=== PATIENT | female | born 1960 | race Caucasian/White ===

== ENCOUNTER → 2016-09-21 | Outpatient (CLI) | payer OTHER ==
[~2016-09-21] MED LIST: ADVIN50/60 INH; ALBUAER2 INH; AMIT25TA19 PO; ATOR-22 PO; BUPR-79 PO; CHN/1 PO; CLON1TAB3 PO; DIVA500T3 PO; GLC/500 PO; ISOS30TA51 PO; LEVO75TA5 PO; RANI300T2 PO; SERT1TAB68 PO
[2016-09-21 10:20] LABS: BASO % 0.3 %; BASO ABS # 0.02 K/uL (0-0.2); COMPLETE YES; EOS % 3.1 %; HEMATOCRIT 39.2 % (37-47); IG% 0.1 %; LYMPH % 39.1 %; LYMPH ABS # 2.62 K/uL (1.2-3.4); MEAN CELL VOLUME 88.9 fL (80-100); MEAN CORPUSCULAR HEMOGLOBIN 30.4 pg (25-34); MEAN CORPUSCULAR HGB CONC 34.2 g/dl (32-36); MEAN PLATELET VOLUME 9.8 fL (7.4-10.4); MONO % 7.2 %; NEUT % 50.2 %; PLATELET COUNT 175 K/uL (130-400); RED BLOOD COUNT 4.41 M/uL (4.2-5.4)
[2016-09-21 10:42] LABS: ESTIMATED AVERAGE GLUCOSE 105 mg/dl; HA1C FLAG Normal (Normal)
[2016-09-21 11:21] LABS: BLOOD UREA NITROGEN 13 mg/dl (7-18); BUN/CREATININE RATIO 16.7 (10-20); CALCIUM 9.1 mg/dl (8.5-10.1); CARBON DIOXIDE 30 mmol/L (21-32); CHLORIDE 104 mmol/L (98-107); CREATININE 0.76 mg/dl (0.60-1.20); GLUCOSE 89 mg/dl (70-99); POTASSIUM 4.4 mmol/L (3.5-5.1); SODIUM 142 mmol/L (136-145)
[2016-09-21 11:34] LABS: AMYLASE 36 U/L (25-115); CHOLESTEROL 178 mg/dl (0-200); CHOLESTEROL/HDL RATIO 4.2; HDL CHOLESTEROL 42 mg/dl; TRIGLYCERIDES 292 mg/dl (0-150); VERY LOW DENSITY LIPOPROT CALC 58 mg/dl
--- NOTE | 2016-09-29 14:02 | CODING QUERY MEDICAL NECESSITY ---
SUPPORTING DIAGNOSIS NEEDED A supporting diagnosis is required for the test/procedure performed on this patient in order for us to be reimbursed by the patient's insurance. Please provide a supporting diagnosis for the following test/procedure listed below next to the test name along with your signature. *If there is no additional diagnosis for this patient that would support the following test/procedure please document that below next to the test/procedure. Test(s)/Procedure(s) that require a supporting diagnosis: * VITAMIN B-12 LEVEL DIAGNOSIS: * GLYCATED HEMOGLOBIN DIAGNOSIS: * DOS: 09/21/16 Provider Signature: Date: Thank you Amy Douglas Health Information Management Once completed, please kindly fax back to [phone] For questions please call [phone]
== END | disposition home or self-care (01) ==
LOC: C.LAB 09:34
DX: I10 Essential (primary) hypertension (principal); E78.5 Hyperlipidemia, unspecified; E03.9 Hypothyroidism, unspecified; G62.9 Polyneuropathy, unspecified; E88.81 Metabolic syndrome and other insulin resistance

== ENCOUNTER → 2017-06-20 | Outpatient (CLI) | payer OTHER ==
[~2017-06-20] MED LIST changes: -ISOS30TA51 PO; +ISR/30 PO
[2017-06-20 10:36] LABS: BASO % 0.3 %; BASO ABS # 0.02 K/uL (0-0.2); COMPLETE YES; EOS % 3.1 %; HEMATOCRIT 37.8 % (37-47); IG% 0.3 %; LYMPH ABS # 2.39 K/uL (1.2-3.4); MEAN CELL VOLUME 93.8 fL (80-100); MEAN CORPUSCULAR HEMOGLOBIN 30.8 pg (25-34); MEAN CORPUSCULAR HGB CONC 32.8 g/dl (32-36); MONO % 6.6 %; NEUT % 57.7 %; PLATELET COUNT 192 K/uL (130-400); RED BLOOD COUNT 4.03 M/uL (4.2-5.4); WHITE BLOOD COUNT 7.46 K/uL (4.8-10.8)
[2017-06-20 11:03] LABS: ESTIMATED AVERAGE GLUCOSE 114 mg/dl; HA1C FLAG Normal (Normal)
[2017-06-20 11:08] LABS: ALT/SGPT 29 U/L (12-78); AST/SGOT 15 U/L (15-37); BLOOD UREA NITROGEN 7 mg/dl (7-18); BUN/CREATININE RATIO 9.9 (10-20); CALCIUM 8.9 mg/dl (8.5-10.1); CARBON DIOXIDE 27 mmol/L (21-32); CHLORIDE 103 mmol/L (98-107); CREATININE 0.72 mg/dl (0.60-1.20); GLUCOSE 93 mg/dl (70-99); POTASSIUM 4.1 mmol/L (3.5-5.1); SODIUM 138 mmol/L (136-145)
[2017-06-20 11:11] LABS: CHOLESTEROL 170 mg/dl (0-200); CHOLESTEROL/HDL RATIO 4.6; HDL CHOLESTEROL 37 mg/dl; LDL CHOLESTEROL CALCULATED 65 mg/dl; TRIGLYCERIDES 339 mg/dl (0-150); VERY LOW DENSITY LIPOPROT CALC 68 mg/dl
== END | disposition home or self-care (01) ==
LOC: C.LAB 08:54
DX: I25.10 Atherosclerotic heart disease of native coronary artery without angina pectoris (principal); I10 Essential (primary) hypertension; G62.9 Polyneuropathy, unspecified; E78.5 Hyperlipidemia, unspecified

== ENCOUNTER 2017-06-28 19:09 | Observation (INO) | payer OTHER ==
[~2017-06-28] VITALS: Ht 172.7 cm; Wt 92.7 kg
--- NOTE | 2017-06-28 20:04 | EMERGENCY ROOM VISIT NOTE ---
History Report prepared by Chris: Brady Weber Under the Supervision of: Daphne HernándezO. First contact with patient: 19:27 Chief Complaint: SHOULDER PAIN Stated Complaint: PAIN IN R SHOULDER AND CHEST History of Present Illness The patient is a 57 year old female who presents to the Emergency Room with complaints of constant right shoulder pain beginning 5 hours ago. The patient states her pain radiates to her back and pleuritic chest. The patient reports she was taking it easy today because she tweaked her back yesterday playing with her grandchild. She notes her pain is an 8/10 when moving, and a 4/10 when sitting. The patient states she is experiencing shortness of breath, chronic cough, and chronic diarrhea. She reports she has a history of pleurisy, and this feels very similar to her previous episodes. The patient notes lying down and deep breathing makes it worse. She states she has a history of diabetes mellitus, neuropathy, depression, insomnia, and smoking. The patient denies nausea, vomiting, blood in her stool, and a history of blood clots. Source of History: patient Onset: 5 hours ago Position: shoulder (right) Modifying Factors (Worsening): breathing (deep), other (lying down) Associated Symptoms: + cough (chronic), + chest pain (pleuritic), + SOB, + back pain, + diarrhea (chronic), No nausea, No vomiting Note: Denies: blood in stool Review of Systems See HPI for pertinent positives & negatives. A total of 10 systems reviewed and were otherwise negative. Past Medical & Surgical Medical Problems: (1) Appendectomy (2) Asthma (3) Bronchitis (4) Cardiac catheterization (5) Cholecystectomy (6) Chronic obstructive lung disease (7) Diabetes mellitus (8) Heart disease (9) Hysterectomy (10) Pleurisy Family History Diabetes mellitus FHx: cancer Gallbladder disease Heart disease Hypertension Kidney disease Kidney stones Seizures Social History Smoking Status: Current Every Day Smoker Alcohol Use: none Marital Status: Housing Status: lives with family Occupation Status: employed Current/Historical Medications Scheduled Amitriptyline Hcl (Amitriptyline), 50 MG PO HS Atorvastatin (Lipitor), 20 MG PO QAM Clonazepam (Klonopin), 0.5 MG PO HS Clopidogrel Bisulfate (Clopidogrel), 75 MG PO QAM Diltiazem Hcl Coated Beads (Diltiazem Hcl Er), 120 MG PO DAILY Divalproex Sodium (Depakote Er), 500 MG PO HS Fluticasone Prop/Salmeterol (Advair Diskus 500/50 60 Dose), 1 PUFFS INH BID Isosorbide Dinitrate (Isordil), 15 MG PO QAM Levothyroxine Sodium (Levothyroxine Sodium), 1 TAB PO QAM Metformin Hcl (Glucophage), 500 MG PO BID Oxycodone HCl (Oxycodone HCl), 1 TAB PO Q6H Ranitidine (Zantac), 300 MG PO BID Sertraline Hcl (Zoloft), 100 MG PO BID Scheduled PRN Albuterol (Ventolin Hfa), 1-2 PUFFS INH BID PRN for Shortness of Breath Allergies Coded Allergies: Aspirin (Verified Allergy, Unknown, HIVES, SOB, 06/28/17) Sulfa Drugs (Verified Allergy, Unknown, HIVES, SOB, 06/28/17) Physical Exam Vital Signs Date Time Temp Pulse Resp B/P (MAP) Pulse Ox O2 Delivery O2 Flow Rate FiO2 06/28/17 22:38 86 18 132/74 92 Room Air 06/28/17 21:35 83 18 114/71 94 Room Air 06/28/17 20:46 93 Room Air 06/28/17 20:42 89 06/28/17 20:09 93 20 123/75 91 Room Air 06/28/17 19:22 36.7 98 18 127/81 93 Room Air Physical Exam GENERAL: alert, well appearing, well nourished, no distress, non-toxic EYE EXAM: normal conjunctiva, PERRL and EOM's grossly intact OROPHARYNX: no exudate, no erythema, lips, buccal mucosa, and tongue normal and mucous membranes are moist NECK: supple, no nuchal rigidity, no adenopathy, non-tender LUNGS: Clear to auscultation. Normal chest wall mechanics HEART: no murmurs, S1 normal and S2 normal no reproducible pain on palpation of the right sided chest wall. ABDOMEN: abdomen soft, non-tender, normo-active bowel sounds, no masses, no rebound or guarding. BACK: Back is symmetrical on inspection and there is no deformity, no midline tenderness, no CVA tenderness. SKIN: no rashes and no bruising UPPER EXTREMITIES: Left upper extremity is grossly normal. Decreased ROM to the right shoulder. No bony tenderness, no joint effusion, no deformity. LOWER EXTREMITIES: No pitting edema. NEURO EXAM: Normal sensorium, cranial nerves II-XII grossly intact, normal speech, no gross weakness of arms, no gross weakness of legs. Medical Decision & Procedures ER Provider Diagnostic Interpretation: Radiology results have been interpreted by the radiologist and reviewed by me. R SHOULDER MIN 2 VIEWS ROUTINE CLINICAL HISTORY: right shoulder pain pain COMPARISON: None. DISCUSSION: The bones and joint spaces appear intact. There is no evidence of fracture, dislocation or bony disease. There is no evidence for soft tissue swelling. IMPRESSION: Negative study. The above report was generated using voice recognition software. It may contain grammatical, syntax or spelling errors. Electronically signed by: Geronimo Pinto M.D. 06/28/2017 8:46 PM Dictated Date/Time: 06/28/2017 8:46 PM CHEST ONE VIEW PORTABLE CLINICAL HISTORY: chest/right shoulder pain pain COMPARISON STUDY: 08/19/2015 FINDINGS: The bones soft tissues and hemidiaphragms are normal. The cardiomediastinal silhouette is normal. The lungs are clear. The pulmonary vasculature is normal. IMPRESSION: Negative chest. The above report was generated using voice recognition software. It may contain grammatical, syntax or spelling errors. Electronically signed by: Geronimo Pinto M.D. 06/28/2017 8:52 PM Dictated Date/Time: 06/28/2017 8:52 PM Laboratory Results 06/28/17 20:17 Red Blood Count 4.13, Mean Corpuscular Volume 91.5, Mean Corpuscular Hemoglobin 31.7, Mean Corpuscular Hemoglobin Concent 34.7, Mean Platelet Volume 9.7, Neutrophils (%) (Auto) 44.9, Lymphocytes (%) (Auto) 44.4, Monocytes (%) (Auto) 6.1, Eosinophils (%) (Auto) 4.0, Basophils (%) (Auto) 0.3, Neutrophils # (Auto) 3.27, Lymphocytes # (Auto) 3.22, Monocytes # (Auto) 0.44, Eosinophils # (Auto) 0.29, Basophils # (Auto) 0.02 Test 06/28/17 20:17 White Blood Count 7.26 K/uL (4.8-10.8) Red Blood Count 4.13 M/uL (4.2-5.4) Hemoglobin 13.1 g/dL (12.0-16.0) Hematocrit 37.8 % (37-47) Mean Corpuscular Volume 91.5 fL (80-100) Mean Corpuscular Hemoglobin 31.7 pg (25-34) Mean Corpuscular Hemoglobin Concent 34.7 g/dl (32-36) Platelet Count 189 K/uL (130-400) Mean Platelet Volume 9.7 fL (7.4-10.4) Neutrophils (%) (Auto) 44.9 % Lymphocytes (%) (Auto) 44.4 % Monocytes (%) (Auto) 6.1 % Eosinophils (%) (Auto) 4.0 % Basophils (%) (Auto) 0.3 % Neutrophils # (Auto) 3.27 K/uL (1.4-6.5) Lymphocytes # (Auto) 3.22 K/uL (1.2-3.4) Monocytes # (Auto) 0.44 K/uL (0.11-0.59) Eosinophils # (Auto) 0.29 K/uL (0-0.5) Basophils # (Auto) 0.02 K/uL (0-0.2) RDW Standard Deviation 46.1 fL (36.4-46.3) RDW Coefficient of Variation 14.0 % (11.5-14.5) Immature Granulocyte % (Auto) 0.3 % Immature Granulocyte # (Auto) 0.02 K/uL (0.00-0.02) Prothrombin Time 10.0 SECONDS (9.0-12.0) Prothromb Time International Ratio 1.0 (0.9-1.1) Activated Partial Thromboplast Time 27.8 SECONDS (21.0-31.0) Partial Thromboplastin Ratio 1.1 D-Dimer 410 ug/L FEU (0-500) Total Bilirubin 0.3 mg/dl (0.2-1) Aspartate Amino Transf (AST/SGOT) 15 U/L (15-37) Alanine Aminotransferase (ALT/SGPT) 28 U/L (12-78) Alkaline Phosphatase 88 U/L (45-117) Total Protein 7.6 gm/dl (6.4-8.2) Albumin 3.7 gm/dl (3.4-5.0) Globulin 3.9 gm/dl (2.5-4.0) Albumin/Globulin Ratio 1.0 (0.9-2) Laboratory results per my review. Medications Administered Medications (Trade) Dose Ordered Sig/Esme Route Start Time Stop Time Status Last Admin Dose Admin Ketorolac Tromethamine (Toradol Inj) 15 mg NOW STAT IV 06/28/17 20:08 06/28/17 20:09 DC 06/28/17 20:28 15 MG Nitroglycerin (Nitroglycerin 2% Oint) 1 inch NOW ONCE EXT 06/28/17 22:30 06/28/17 22:31 DC 06/28/17 22:41 1 INCH Morphine Sulfate (MoRPHine SULFATE INJ) 2 mg Q30M PRN IV 06/28/17 23:00 06/29/17 17:24 DC 06/29/17 13:50 2 MG ECG Indication: chest pain, back/shoulder pain Rate (beats per minute): 85 Rhythm: normal sinus Findings: T-wave inversion (in AVL), other (no other acute ischemic changes) Comparison ECG Date: 11/04/14 Change: no significant change Change: Second EKG in the same visit: normal sinus rhythm, rate of 80, ST-depression in V5 and V6 now present. ED Course 1928: The patient was evaluated in room C05. A complete history and physical exam was performed by the medical student under my supervision. 2007: Ordered Ketorolac Tromethamine 15 mg IV 2102: The patient was evaluated in room C05. A complete history and physical exam was performed by me. She states the tramadol helped with her symptoms. 2129: Ordered Nitroglycerin 1 inch EXT 2217: Upon reevaluation, the patient is resting comfortably. I discussed the findings, EKG changes, and the treatment plan with the patient. She expresses agreement and understanding. She will be evaluated for further management. 2301: I discussed the patient's case with Dr. Cohen, [facility] Hospitalist. The patient will be evaluated for further management and care. Medical Decision Differential diagnoses includes but is not limited to acute coronary syndrome, myocardial infarction, pericarditis, pulmonary embolus, aortic dissection, pneumonia, pneumothorax, musculoskeletal, shingles, esophageal. Review of EMR showed patient had a cardiac cath nearly 5 years ago, now having right-sided chest pain and shoulder pain originally thought to possibly be musculoskeletal or pleurisy based on patient's history, however when repeat troponin was performed repeat EKG was performed also which did show new ST depression. Despite second troponin being negative, I discussed with the hospitalist for admission and possible cardiology evaluation. Patient does not routinely see cardiology and has not had any additional testing since her cardiac cath 5 years ago. Patient's pain was originally improved with Toradol, however not complete resolved, nitroglycerin paste was added as well as aspirin. Discussed with patient concern given risk factors for ACS and possible atypical symptoms movement. Patient also then reported significant cardiac history in first-degree relatives. Patient hemodynamically stable here. I do not suspect PE, dissection, hypertensive emergency, tamponade, occult infectious etiology. Medication Reconcilliation Current Medication List: was personally reviewed by me Blood Pressure Screening Patient's blood pressure: Normal blood pressure Blood pressure disposition: Did not require urgent referral Consults Time Called: 2230 Consulting Physician: Dr. Cohen, [facility] Hospitalist Returned Call: [phone] I discussed the patient's case with Dr. Cohen, [facility] Hospitalist. The patient will be evaluated for further management and care. Impression Primary Impression: Chest pain Additional Impressions: Abnormal EKG Shoulder pain Tobacco abuse Scribe Attestation The scribe's documentation has been prepared under my direction and personally reviewed by me in its entirety. I confirm that the note above accurately reflects all work, treatment, procedures, and medical decision making performed by me. Departure Information Dispostion Being Evaluated By Hospitalist Prescriptions Oxycodone HCl (Oxycodone HCl) 5 Mg Tab 1 TAB PO Q6H for Pain for 5 Days, #15 TAB 0 Refills Prov: Cameron Cary M.D. 06/29/17 Referrals Yonathan Pederson Jr,D.O. (PCP) Patient Instructions My [facility] Problem Qualifiers Primary Impression: Chest pain Chest pain type: unspecified Qualified Codes: R07.9 - Chest pain, unspecified Additional Impressions: Shoulder pain Chronicity: acute Laterality: right Qualified Codes: M25.511 - Pain in right shoulder
[2017-06-28] MEDS ORDERED: KETOROLAC TROMETHAMINE 30 MG/ML VIAL IV STA (20:08)
[2017-06-28 20:30] LABS: BASO % 0.3 %; BASO ABS # 0.02 K/uL (0-0.2); COMPLETE YES; HEMATOCRIT 37.8 % (37-47); IG% 0.3 %; LYMPH % 44.4 %; LYMPH ABS # 3.22 K/uL (1.2-3.4); MEAN CELL VOLUME 91.5 fL (80-100); MEAN CORPUSCULAR HEMOGLOBIN 31.7 pg (25-34); MEAN CORPUSCULAR HGB CONC 34.7 g/dl (32-36); MEAN PLATELET VOLUME 9.7 fL (7.4-10.4); MONO % 6.1 %; NEUT % 44.9 %; PLATELET COUNT 189 K/uL (130-400); RED BLOOD COUNT 4.13 M/uL (4.2-5.4); WHITE BLOOD COUNT 7.26 K/uL (4.8-10.8)
[2017-06-28] MEDS ORDERED: DILT120C PO (20:35)
[2017-06-28] MEDS ORDERED: PLV75 PO (20:35)
--- NOTE | 2017-06-28 20:48 | DIAGNOSTIC IMAGING REPORT ---
R SHOULDER MIN 2 VIEWS ROUTINE CLINICAL HISTORY: right shoulder pain pain COMPARISON: None. DISCUSSION: The bones and joint spaces appear intact. There is no evidence of fracture, dislocation or bony disease. There is no evidence for soft tissue swelling. IMPRESSION: Negative study. The above report was generated using voice recognition software. It may contain grammatical, syntax or spelling errors. Electronically signed by: Geronimo Pinto M.D. 06/28/2017 8:46 PM Dictated Date/Time: 06/28/2017 8:46 PM
[2017-06-28 20:50] LABS: ALT/SGPT 28 U/L (12-78); BLOOD UREA NITROGEN 7 mg/dl (7-18); BUN/CREATININE RATIO 8.2 (10-20); CALCIUM 9.2 mg/dl (8.5-10.1); CARBON DIOXIDE 26 mmol/L (21-32); CHLORIDE 106 mmol/L (98-107); GLUCOSE 113 mg/dl (70-99); POTASSIUM 3.4 mmol/L (3.5-5.1); SODIUM 140 mmol/L (136-145)
--- NOTE | 2017-06-28 20:53 | DIAGNOSTIC IMAGING REPORT ---
CHEST ONE VIEW PORTABLE CLINICAL HISTORY: chest/right shoulder pain pain COMPARISON STUDY: 08/19/2015 FINDINGS: The bones soft tissues and hemidiaphragms are normal. The cardiomediastinal silhouette is normal. The lungs are clear. The pulmonary vasculature is normal. IMPRESSION: Negative chest. The above report was generated using voice recognition software. It may contain grammatical, syntax or spelling errors. Electronically signed by: Geronimo Pinto M.D. 06/28/2017 8:52 PM Dictated Date/Time: 06/28/2017 8:52 PM
[2017-06-28 20:55] LABS: ALKALINE PHOSPHATASE 88 U/L (45-117); AST/SGOT 15 U/L (15-37)
[2017-06-28] MEDS ORDERED: NITROGLYCERIN OINT 2% 1GM PACKET EXT ONE (22:30)
[2017-06-28] MEDS ORDERED: MAGNESIUM HYDROXIDE SUSP 30 ML UDC PO PRN (23:00)
[2017-06-28] MEDS ORDERED: NITROGLYCERIN 0.4 MG SL PER TAB CHARGE SL PRN (23:00)
[2017-06-28] MEDS ORDERED: ALUMINUM/MAGNESIUM/SIMETH (MAALOX MAX) 30 ML UDC PO PRN (23:00)
[2017-06-28] MEDS ORDERED: ONDANSETRON INJ 2 MG/ML 2 ML VIAL IV PRN (23:00)
[2017-06-28] MEDS ORDERED: POLYETHYLENE (MIRALAX) 17 GM PACK PO PRN (23:00)
[2017-06-28] MEDS ORDERED: ALBUTEROL HFA 8 GM INHALER INH PRN (23:00)
[2017-06-28] MEDS ORDERED: ZOLPIDEM TARTRATE 5 MG TAB PO PRN (23:00)
[2017-06-28] MEDS ORDERED: ACETAMINOPHEN 325 MG TAB PO PRN (23:00)
--- NOTE | 2017-06-28 23:15 | History and Physical ---
History & Physical Date & Time of Service: Jun 28, 2017 at 23:06 Chief Complaint: Pain In R Shoulder And Chest Primary Care Physician: Yonathan Pederson Jr,D.O. History of Present Illness Source: patient 57 y/o F Hx, COPD, HTN, thyroid disease, depression, Metabolic syndrome, coronary vasospasm, active smoker. Presents with pain across the top of her chest and radiating into her L shoulder, accompanied by SOB. The pain is exacerbated with activity. Denies N/V, diaphoresis or lightheadedness. Consecutive troponins obtained in the ER were negative, however, an EKG showed lateral changes which correlated with an additional episode of CP in the ER. Past Medical/Surgical History 1) COPD - dependent on 2L HS 2) Metabolic syndrome - states she takes Metformin for pre-diabetes 3) The pt had CP and EKG changes 5 years prior leading to a catheterization. There was no significant occlusive disease and she was provided with a diagnosis of coronary vasospasm. 4) Smoker 5) Depression 6) Hypothyroidism Family History Diabetes mellitus FHx: cancer Gallbladder disease Heart disease Hypertension Kidney disease Kidney stones Seizures Social History Smokes one pack daily prior to retiring to sleep with 2L 02, does not drink Smoking Status: Current Every Day Smoker Marital Status: Occupational Status: employed Immunizations History of Influenza Vaccine: No Influenza Vaccine Date: Apr 21, 2011 History of Tetanus Vaccine?: Unknown Tetanus Immunization Date: Jul 03, 2004 History of Pneumococcal: No History of Hepatitis B Vaccine: No Multi-Drug Resistant Organisms History of MDRO: No Allergies Coded Allergies: Aspirin (Verified Allergy, Unknown, HIVES, SOB, 06/28/17) Sulfa Drugs (Verified Allergy, Unknown, HIVES, SOB, 06/28/17) Home Medications Scheduled Amitriptyline Hcl (Amitriptyline), 50 MG PO HS Atorvastatin (Lipitor), 20 MG PO QAM Clonazepam (Klonopin), 0.5 MG PO HS Clopidogrel Bisulfate (Clopidogrel), 75 MG PO QAM Diltiazem Hcl Coated Beads (Diltiazem Hcl Er), 120 MG PO DAILY Divalproex Sodium (Depakote Er), 500 MG PO HS Fluticasone Prop/Salmeterol (Advair Diskus 500/50 60 Dose), 1 PUFFS INH BID Isosorbide Dinitrate (Isordil), 15 MG PO QAM Levothyroxine Sodium (Levothyroxine Sodium), 1 TAB PO QAM Metformin Hcl (Glucophage), 500 MG PO BID Ranitidine (Zantac), 300 MG PO BID Sertraline Hcl (Zoloft), 100 MG PO BID Scheduled PRN Albuterol (Ventolin Hfa), 1-2 PUFFS INH BID PRN for Shortness of Breath Physical Exam Vital Signs Date Time Temp Pulse Resp B/P (MAP) Pulse Ox O2 Delivery O2 Flow Rate FiO2 06/28/17 22:38 86 18 132/74 92 Room Air 06/28/17 21:35 83 18 114/71 94 Room Air 06/28/17 20:46 93 Room Air 06/28/17 20:42 89 06/28/17 20:09 93 20 123/75 91 Room Air 06/28/17 19:22 36.7 98 18 127/81 93 Room Air Diagnostics Laboratory Results Results Past 24 Hours Test 06/28/17 20:17 06/28/17 21:48 Range/Units White Blood Count 7.26 4.8-10.8 K/uL Red Blood Count 4.13 4.2-5.4 M/uL Hemoglobin 13.1 12.0-16.0 g/dL Hematocrit 37.8 37-47 % Mean Corpuscular Volume 91.5 80-100 fL Mean Corpuscular Hemoglobin 31.7 25-34 pg Mean Corpuscular Hemoglobin Concent 34.7 32-36 g/dl Platelet Count 189 130-400 K/uL Mean Platelet Volume 9.7 7.4-10.4 fL Neutrophils (%) (Auto) 44.9 % Lymphocytes (%) (Auto) 44.4 % Monocytes (%) (Auto) 6.1 % Eosinophils (%) (Auto) 4.0 % Basophils (%) (Auto) 0.3 % Neutrophils # (Auto) 3.27 1.4-6.5 K/uL Lymphocytes # (Auto) 3.22 1.2-3.4 K/uL Monocytes # (Auto) 0.44 0.11-0.59 K/uL Eosinophils # (Auto) 0.29 0-0.5 K/uL Basophils # (Auto) 0.02 0-0.2 K/uL RDW Standard Deviation 46.1 36.4-46.3 fL RDW Coefficient of Variation 14.0 11.5-14.5 % Immature Granulocyte % (Auto) 0.3 % Immature Granulocyte # (Auto) 0.02 0.00-0.02 K/uL D-Dimer 410 0-500 ug/L FEU Sodium Level 140 136-145 mmol/L Potassium Level 3.4 3.5-5.1 mmol/L Chloride Level 106 98-107 mmol/L Carbon Dioxide Level 26 21-32 mmol/L Anion Gap 8.0 3-11 mmol/L Blood Urea Nitrogen 7 7-18 mg/dl Creatinine 0.80 0.60-1.20 mg/dl Est Creatinine Clear Calc Drug Dose 95.6 ml/min Estimated GFR () 96.2 Estimated GFR (Non- 83.0 BUN/Creatinine Ratio 8.2 10-20 Random Glucose 113 70-99 mg/dl Calcium Level 9.2 8.5-10.1 mg/dl Total Bilirubin 0.3 0.2-1 mg/dl Aspartate Amino Transf (AST/SGOT) 15 15-37 U/L Alanine Aminotransferase (ALT/SGPT) 28 12-78 U/L Alkaline Phosphatase 88 45-117 U/L Troponin I < 0.015 < 0.015 0-0.045 ng/ml Total Protein 7.6 6.4-8.2 gm/dl Albumin 3.7 3.4-5.0 gm/dl Globulin 3.9 2.5-4.0 gm/dl Albumin/Globulin Ratio 1.0 0.9-2 EKG Sinus - lateral T wave inversions Impression Assessment and Plan 57 y/o F Hx, COPD, HTN, thyroid disease, depression, Metabolic syndrome, coronary vasospasm, active smoker. Presents with pain across the top of her chest and radiating into her L shoulder, accompanied by SOB. The pain is exacerbated with activity. Denies N/V, diaphoresis or lightheadedness. Consecutive troponins obtained in the ER were negative, however, an EKG showed lateral changes which correlated with an additional episode of CP in the ER. 1) CP - EKG - lateral EKG changes are apparent - This had occurred 5 years prior and a cath at the time did not reveal CAD. She ad recurrence of pain in the ER. She is at high risk as well, due to her contnued smoking and metabolic syndrome. We will monitor overnight and request a cardiology consult AM. She will remain on Plavix (due to ASA allergy), Statin, Imdur. 2) COPD - cont prescribed inhalers and 02 HS 3) HTN - cont Diltiazem, Imdur 4) Hypothyroidism - cont Synthroid 5) Pt is a smoker - does not confer interest in cessation. Full code - Lovenox prophylaxis Total time for this admit including review of labs, meds, EKG - discussion with opt and ER attending - 30 min Level of Care Telemetry Resuscitation Status FULL RESUSCITATION VTE Prophylaxis Given or contraindicated: Enoxaparin (Lovenox)SQ
[2017-06-28] MEDS: MoRPHine SULFATE 2 MG/ML CARP IV PRN (23:32)
[2017-06-28] MEDS ORDERED: IV FLUIDS COMPLETED PRN (23:45)
[2017-06-29 00:45] VITALS: BP 126/80; PULSE 79; TEMP 36.8; O2SAT 92; Ht 172.7 cm; Wt 92.7 kg
[2017-06-29 01:33] LABS: PARTIAL THROMBOPLASTIN RATIO 1.1
[2017-06-29 04:12] VITALS: BP 122/76; PULSE 73; TEMP 36.4; O2SAT 92
[2017-06-29] MEDS: MoRPHine SULFATE 2 MG/ML CARP IV PRN ×3 (06:02→13:50)
[2017-06-29] MEDS ORDERED: LEVOTHYROXINE 75 MCG TAB PO SCH (06:30)
[2017-06-29 07:30] VITALS: BP 111/66; PULSE 76; TEMP 36.5; O2SAT 95
[2017-06-29 08:00] VITALS: O2SAT 95
[2017-06-29] MEDS ORDERED: FLUTICASONE/SALMETEROL (ADVAIR) 500/50 INH 14 PUFF INH SCH (09:00)
[2017-06-29] MEDS ORDERED: ENOXAPARIN 40 MG/0.4 ML SYR SC SCH (09:00)
[2017-06-29] MEDS ORDERED: ATORVASTATIN 20 MG TAB PO SCH (09:00)
[2017-06-29] MEDS ORDERED: DILTIAZEM HCL 120 MG CAPCR PO SCH (09:00)
[2017-06-29] MEDS ORDERED: CLOPIDOGREL BISULFATE 75 MG TAB PO SCH (09:00)
[2017-06-29] MEDS ORDERED: ISOSORBIDE MONONITRATE 30 MG TABCR PO SCH (09:00)
[2017-06-29] MEDS ORDERED: SERTRALINE HCL 100 MG TAB PO SCH (09:00)
[2017-06-29] MEDS ORDERED: RANITIDINE HCL 150 MG TAB PO SCH (09:00)
--- NOTE | 2017-06-29 09:52 | Cardiology Consultation ---
Cardiology Consultation Date of Consultation: Jun 29, 2017. Requesting Physician: Dr. Cohen Attending Physician: Dr. Vuong Reason for Consultation: Chest pain with EKG changes Pt evaluation today including: conversation w/ patient, physical exam, chart review, lab review, review of studies, review of inpatient medication list, conversation w/ attending History of Present Illness Mrs. Akers is a 57-year-old female with a past medical history significant for possible coronary vasospasm, mild coronary disease, COPD with ongoing tobacco use, and type 2 diabetes mellitus who presented to the ED yesterday in the setting of constant right sided and central chest pain as well as right shoulder pain. She reports that she was waiting for her grandson to get off the school bus when the discomfort occurred. The pain is worse with taking deep breaths and with certain movements. In the ED, she had dynamic ECG changes with T wave inversion of her lateral leads. She was therefore admitted for further evaluation. She has had 3 sets of negative cardiac enzymes. She has been treated with IV morphine with improvement of her symptoms. The patient also admits to 2 other types of chest pain. For the last several years, she has had intermittent episodes of sharp pain in the center of her chest about once a week. She can feel a "build-up" in her throat before the onset of the chest pain. It typically occurs during times of emotional distress but can also occur with exertion. She typically takes 2-3 nitro to resolve the pain. This discomfort has been evaluated in the past with 2 cardiac catheterizations. Her most recent cardiac catheterization in 2012 showed mild, nonobstructive CAD. She has been treated with nitrates and calcium channel eligio since that time to treat possible coronary vasospasm. In February and March, she began noting a different type of chest pain, which is described as a "jarring pain" in the left side of her chest. The discomfort typically occurs at rest and lasts about 30 seconds in duration. She has associated tingling down her left arm, dizziness, and confusion with the discomfort. She was asymptomatic in April, but the discomfort returned in May. She denies shortness of breath, orthopnea, PND, edema, syncope, presyncope, palpitations, or abnormal bleeding. Review of Systems: As noted in HPI. All other ROS reviewed and otherwise negative. Past Medical/Surgical History 1. Coronary vasospasm 2. Mild coronary artery disease 3. COPD with ongoing tobacco use 4. Asthma 5. Hypothyroidism 6. GERD 7. Anxiety 8. S/P appendectomy 9. S/P cholecystectomy 10. S/P hysterectomy 11. S/P Tonsillectomy 12. S/P Right carpal tunnel surgery 13. S/P left hand surgery 14. S/P dental extraction Family History Diabetes mellitus FHx: cancer Gallbladder disease Heart disease Hypertension Kidney disease Kidney stones Seizures She has 2 sisters with a history of DC and CABG in their 50s. Social History Smoking Status: Current Every Day Smoker History of Alcohol Use: No She is with children and grandchildren. She is not currently working. She has smoked since age 15 and is currently smoking 1 ppd. She denies alcohol or illicit drug use. Review of Systems Cardiac: + chest pain Allergies Coded Allergies: Aspirin (Verified Allergy, Unknown, HIVES, SOB, 06/28/17) Sulfa Drugs (Verified Allergy, Unknown, HIVES, SOB, 06/28/17) Medications Current Inpatient Medications Medications (Trade) Dose Ordered Sig/Esme Route Start Time Stop Time Status Last Admin Dose Admin Albuterol (Ventolin Hfa Inhaler) 2 puffs Q6H PRN INH 06/28/17 23:00 07/28/17 22:59 Amitriptyline HCl (Elavil Tab) 50 mg HS PO 06/29/17 21:00 07/29/17 20:59 Atorvastatin Calcium (Lipitor Tab) 20 mg QAM PO 06/29/17 09:00 07/29/17 08:59 06/29/17 08:01 20 MG Clonazepam (Klonopin Tab) 0.5 mg HS PO 06/29/17 21:00 07/29/17 20:59 Clopidogrel Bisulfate (plAVix TAB) 75 mg QAM PO 06/29/17 09:00 07/29/17 08:59 06/29/17 08:01 75 MG Diltiazem HCl (Cardizem Cd Cap) 120 mg DAILY PO 06/29/17 09:00 07/29/17 08:59 06/29/17 08:01 120 MG Divalproex Sodium (Depakote Extended Rel Tab) 500 mg HS PO 06/29/17 21:00 07/29/17 20:59 Salmeterol Xinafoate/ Fluticasone (Advair Diskus 500/50 Inh) 1 puff BID INH 06/29/17 09:00 07/29/17 08:59 06/29/17 08:00 1 PUFF Levothyroxine Sodium (Synthroid Tab) 75 mcg DAILYBB PO 06/29/17 06:30 07/29/17 06:29 06/29/17 06:02 75 MCG Sertraline HCl (Zoloft Tab) 100 mg BID PO 06/29/17 09:00 07/29/17 08:59 06/29/17 08:01 100 MG Isosorbide Mononitrate (Imdur Ext Rel Tab) 15 mg QAM PO 06/29/17 09:00 07/29/17 08:59 06/29/17 08:01 15 MG Ranitidine HCl (zANTac TAB) 300 mg BID PO 06/29/17 09:00 07/29/17 08:59 06/29/17 08:01 300 MG Enoxaparin Sodium (Lovenox Inj) 40 mg Q24H SC 06/29/17 09:00 07/29/17 08:59 06/29/17 08:02 40 MG Acetaminophen (Tylenol Tab) 650 mg Q4H PRN PO 06/28/17 23:00 07/28/17 22:59 Al Hydrox/Mg Hydrox/Simethicone (Maalox Max Susp) 15 ml Q4H PRN PO 06/28/17 23:00 07/28/17 22:59 Magnesium Hydroxide (Milk Of Magnesia Susp) 30 ml Q12H PRN PO 06/28/17 23:00 07/28/17 22:59 Zolpidem Tartrate (Ambien Tab) 5 mg HSZ PRN PO 06/28/17 23:00 07/28/17 22:59 Ondansetron HCl (Zofran Inj) 4 mg Q6H PRN IV 06/28/17 23:00 07/28/17 22:59 Nitroglycerin (Nitrostat Tab) 0.4 mg UD PRN SL 06/28/17 23:00 07/28/17 22:59 Morphine Sulfate (MoRPHine SULFATE INJ) 2 mg Q30M PRN IV 06/28/17 23:00 07/12/17 22:59 06/29/17 09:09 2 MG Polyethylene (Miralax Powder Packet) 17 gm DAILY PRN PO 06/28/17 23:00 07/28/17 22:59 Miscellaneous (Iv Fluids Completed) 1 ea PRN PRN N/A 06/28/17 23:45 06/28/18 23:44 Physical Exam Vital Signs Past 12 Hours Date Time Temp Pulse Resp B/P (MAP) Pulse Ox O2 Delivery O2 Flow Rate FiO2 06/29/17 08:00 95 Nasal Cannula 2.0 06/29/17 07:30 36.5 76 16 111/66 (81) 95 Nasal Cannula 2.0 06/29/17 04:12 36.4 73 16 122/76 (91) 92 Nasal Cannula 1.0 06/29/17 04:00 Nasal Cannula 2.0 06/29/17 00:45 36.8 79 20 126/80 92 Room Air 06/29/17 00:39 80 18 104/74 92 06/29/17 00:05 80 06/28/17 23:27 86 18 123/74 92 Room Air 06/28/17 22:38 86 18 132/74 92 Room Air 06/28/17 21:35 83 18 114/71 94 Room Air Constitutional: Alert, oriented, in no acute distress. Oxygen via nasal cannula HEENT: Head is atraumatic and normocephalic. EOMs intact. Sclera anicteric. Face is symmetric. No perioral cyanosis. Mucous membranes moist. Neck: Supple, no JVD, no carotid bruits Pulmonary: Normal respiratory effort, clear to auscultation bilaterally Cardiac: Regular rate and rhythm, normal S1 and S2, no gallops, no rubs, no murmurs Extremities: No clubbing, cyanosis, or edema. Pulses 2+ and symmetric Abdomen: Normal bowel sounds, soft, non-tender, no abdominal mass palpated Skin: Normal skin color, turgor, and pigmentation, no rash, no skin lesions Neurological: Oriented to person, place, and time Data Laboratory Results: Last 24 Hours Test 06/28/17 20:17 06/28/17 21:48 06/29/17 05:03 White Blood Count 7.26 K/uL Red Blood Count 4.13 M/uL Hemoglobin 13.1 g/dL Hematocrit 37.8 % Mean Corpuscular Volume 91.5 fL Mean Corpuscular Hemoglobin 31.7 pg Mean Corpuscular Hemoglobin Concent 34.7 g/dl Platelet Count 189 K/uL Mean Platelet Volume 9.7 fL Neutrophils (%) (Auto) 44.9 % Lymphocytes (%) (Auto) 44.4 % Monocytes (%) (Auto) 6.1 % Eosinophils (%) (Auto) 4.0 % Basophils (%) (Auto) 0.3 % Neutrophils # (Auto) 3.27 K/uL Lymphocytes # (Auto) 3.22 K/uL Monocytes # (Auto) 0.44 K/uL Eosinophils # (Auto) 0.29 K/uL Basophils # (Auto) 0.02 K/uL RDW Standard Deviation 46.1 fL RDW Coefficient of Variation 14.0 % Immature Granulocyte % (Auto) 0.3 % Immature Granulocyte # (Auto) 0.02 K/uL Prothrombin Time 10.0 SECONDS Prothromb Time International Ratio 1.0 Activated Partial Thromboplast Time 27.8 SECONDS Partial Thromboplastin Ratio 1.1 D-Dimer 410 ug/L FEU Sodium Level 140 mmol/L Potassium Level 3.4 mmol/L Chloride Level 106 mmol/L Carbon Dioxide Level 26 mmol/L Anion Gap 8.0 mmol/L Blood Urea Nitrogen 7 mg/dl Creatinine 0.80 mg/dl Est Creatinine Clear Calc Drug Dose 95.6 ml/min Estimated GFR () 96.2 Estimated GFR (Non- 83.0 BUN/Creatinine Ratio 8.2 Random Glucose 113 mg/dl Calcium Level 9.2 mg/dl Total Bilirubin 0.3 mg/dl Aspartate Amino Transf (AST/SGOT) 15 U/L Alanine Aminotransferase (ALT/SGPT) 28 U/L Alkaline Phosphatase 88 U/L Troponin I < 0.015 ng/ml < 0.015 ng/ml < 0.015 ng/ml Total Protein 7.6 gm/dl Albumin 3.7 gm/dl Globulin 3.9 gm/dl Albumin/Globulin Ratio 1.0 Right shoulder and CXR: No acute process EKG 06/28/17 @ 20:09 showed sinus rhythm with nonspecific T wave abnormality. Repeat EKG @ 21:44 showed sinus rhythm with T wave inversion in leads V4-V6 Telemetry reviewed: Sinus rhythm. Cardiac catheterization 09/09/2012: 30% mid LAD stenosis. Other coronary arteries were normal. Assessment & Plan ASSESSMENT/PLAN: 1. Chest pain: The patient reports 3 different types of chest pain. The discomfort which led to her current admission appears more pleuritic in nature. The discomfort occurring since February is atypical in nature as it occurs at rest and lasts only 30 seconds in duration. Her chronic discomfort occurring intermittently over the last several years appears more concerning in that it is relieved with nitro. This discomfort could be secondary to Prinzmetal angina , although, it is difficult to make a definitive diagnosis of this. Fortunately , her cardiac enzymes have been negative, but given her dynamic EKG changes, it is recommended that she undergo an echocardiogram for further evaluation of her LV systolic function and wall motion. If her resting echo is normal, will proceed with a stress test for further evaluation of myocardial ischemia. It is also recommended that her isosorbide mononitrate be increased to 30 mg daily to treat possible vasospasm. Would continue Diltiazem as prescribed. 2. Coronary artery disease: She had mild, nonobstructive CAD by cardiac cath in 2012. Recommend an echocardiogram with possible stress echo as noted above. Continue Plavix as prescribed given her history of aspirin allergy. Recommend increasing her atorvastatin to 40 mg daily given the fact that high intensity statin therapy is indicated with known CAD. 3. Tobacco abuse: Recommend discontinuing smoking. Thank you for allowing us to see this patient in consultation. The patient was discussed with Dr. Vuong, who will also be in to see the patient today. Addendum by Cardiology attending: Patient was seen and examined on 06/29/2017. Agree with above with following additions. She has described 3 separate chest discomforts as noted above. Her presenting symptom was a right-sided chest discomfort into her right shoulder and into the central chest. It was constant since 3:00 p.m. yesterday and worse with movement of her right upper extremity/torso. There also was a pleuritic component. Despite constant chest discomfort she has had negative troponins. She did developed lateral T-wave abnormality on ECGs, which was a new finding compared to prior ECG. She denies syncope, near-syncope, shortness of breath. History reviewed as noted above. Exam notable for: Vitals reviewed. Neck no JVD Cardiac: Normal S1 and S2. Regular. No murmurs, rubs, or gallops. Lungs: Clear to auscultation bilaterally. Extremities: No edema or cyanosis. ECGs personally reviewed. ECG 06/28/2017 at 9:44 a.m. demonstrated sinus rhythm at 80 beats per minute. Lateral T-wave inversion. Labs reviewed. ASSESSMENT/PLAN: 1. Chest pain: She has 3 distinct chest pain syndromes. Her presenting chest discomfort is very atypical and is not overly concerning for ischemic heart disease but given abnormal ECG, echocardiogram ordered and if no new wall motion abnormalities were noted, would proceed with dobutamine stress echo. The chest discomfort for which she takes nitroglycerin, is also not overly convincing for angina as a persists for 20-30 minutes on average despite taking 2 or 3 nitroglycerin tablets. Symptoms are also not typically due to exertion. Because she feels as though nitroglycerin does help her somewhat, recommend increasing isosorbide mononitrate to 30 mg daily to see if that offers any benefit. There was concern in the past for vaso spasm as apparently this was noted from the coronary diagnostic catheter inducing spasm in the past. She is also on calcium channel eligio. 2. CAD: She does have minimal nonobstructive CAD within the mid LAD on 2012 cardiac catheterization cardiac catheterization images were personally reviewed recommend continuation of anti-platelet therapy. Recommend high- intensity statin therapy. Recommend smoking cessation. risk factor modification recommended. 3. Tobacco abuse: Recommended that she stop smoking. 4. Disposition: If echo and stress echo are unremarkable, would recommend no further ischemic evaluation at this time. Following initial recommendations, echocardiogram images were personally reviewed and demonstrated normal wall motion and LV systolic function. This progressed to a dobutamine stress echo. Dobutamine stress echo was negative for ischemia and she did not have any induced chest discomfort from the stress testing pharmacologic agents. No further cardiac evaluation recommended at this time. Thank you for allowing me to participate in the care of your patient. Please call for any other questions or concerns. Sincerely, Jonny Vuong M.D.
[2017-06-29] MEDS ORDERED: DOBUTamine HCL 12.5 MG/ML 20 ML VIAL ONE (11:49)
[2017-06-29] MEDS ORDERED: METOPROLOL TARTRATE 1 MG/ML VIAL ONE (11:49)
[2017-06-29] MEDS ORDERED: ATROPINE SULFATE 0.1 MG/ML 5ML SYR ONE (11:49)
[2017-06-29] MEDS ORDERED: PERFLUTREN LIPID MICROSPHERE (DEFINITY) IV ONE (12:51)
[2017-06-29 13:43] VITALS: BP 112/65; PULSE 87; TEMP 36.7; O2SAT 91
[2017-06-29 14:02] VITALS: BP 112/65; PULSE 87; TEMP 36.7; O2SAT 91
[2017-06-29 14:27] LABS: BUN/CREATININE RATIO 11.6 (10-20); CALCIUM 8.6 mg/dl (8.5-10.1); CREATININE 0.75 mg/dl (0.60-1.20); PHOSPHORUS 3.6 mg/dl (2.5-4.9); POTASSIUM 3.5 mmol/L (3.5-5.1)
[2017-06-29] MEDS ORDERED: RXC5 PO (15:09)
--- NOTE | 2017-06-29 15:10 | Discharge Instructions ---
Discharge Instructions Date of Service Jun 29, 2017. Admission Reason for Admission: Chest Pain Discharge Discharge Diagnosis / Problem: Pleuritic Chest Pian Discharge Goals Goal(s): Decrease discomfort, Improve function Activity Recommendations Activity Limitations: as noted below Lifting Limitations: gradually increase as tolerated . Instructions / Follow-Up Instructions / Follow-Up F/U with Primary Care Provider in 1 week Current Hospital Diet Patient's current hospital diet: AHA Diet (Heart Healthy), Diabetes Type 2 Diet Discharge Diet Recommended Diet: AHA Diet (Heart Healthy), Diabetes Type 2 Diet Pending Studies Studies pending at discharge: no Laboratory Results Hemoglobin A1c Test 06/20/17 09:05 Range/Units Estimated Average Glucose 114 mg/dl Hemoglobin A1c 5.6 4.5-5.6 % Lipid Panel Test 06/20/17 09:05 Range/Units Triglycerides Level 339 H 0-150 mg/dl Cholesterol Level 170 0-200 mg/dl HDL Cholesterol 37 mg/dl Cholesterol/HDL Ratio 4.6 LDL Cholesterol, Calculated 65 mg/dl Medical Emergencies . Who to Call and When: Medical Emergencies: If at any time you feel your situation is an emergency, please call 911 immediately. . Non-Emergent Contact Non-Emergency issues call your: Primary Care Provider Call Non-Emergent contact if: your pain is not controlled, your pain is worsening, your pain is unusual for you . . "Provider Documentation" section prepared by Cameron Cary. . VTE Core Measure Inpt VTE Proph given/why not?: Enoxaparin (Lovenox)SQ
--- NOTE | 2017-06-29 15:11 | Discharge Summary ---
Discharge Summary Date of Service Jun 29, 2017. Discharge Summary Admission Date: Jun 28, 2017 at 23:19 Discharge Date: Jun 29, 2017 Discharge Disposition: Home Principal Diagnosis: atypical chest pain Problems/Secondary Diagnoses: COPD, HTN Immunizations: Have You Had Influenza Vaccine: No Influenza Vaccine Date: Apr 21, 2011 History of Tetanus Vaccine?: Unknown Tetanus Immunization Date: Jul 03, 2004 History of Pneumococcal: No History of Hepatitis B Vaccine: No Consultations: Cardiology Consultation Date of Consultation: Jun 29, 2017. Requesting Physician: Dr. Cohen Attending Physician: Dr. Vuong Reason for Consultation: Chest pain with EKG changes Pt evaluation today including: conversation w/ patient, physical exam, chart review, lab review, review of studies, review of inpatient medication list, conversation w/ attending History of Present Illness Mrs. Akers is a 57-year-old female with a past medical history significant for possible coronary vasospasm, mild coronary disease, COPD with ongoing tobacco use, and type 2 diabetes mellitus who presented to the ED yesterday in the setting of constant right sided and central chest pain as well as right shoulder pain. She reports that she was waiting for her grandson to get off the school bus when the discomfort occurred. The pain is worse with taking deep breaths and with certain movements. In the ED, she had dynamic ECG changes with T wave inversion of her lateral leads. She was therefore admitted for further evaluation. She has had 3 sets of negative cardiac enzymes. She has been treated with IV morphine with improvement of her symptoms. The patient also admits to 2 other types of chest pain. For the last several years, she has had intermittent episodes of sharp pain in the center of her chest about once a week. She can feel a "build-up" in her throat before the onset of the chest pain. It typically occurs during times of emotional distress but can also occur with exertion. She typically takes 2-3 nitro to resolve the pain. This discomfort has been evaluated in the past with 2 cardiac catheterizations. Her most recent cardiac catheterization in 2012 showed mild, nonobstructive CAD. She has been treated with nitrates and calcium channel eligio since that time to treat possible coronary vasospasm. In February and March, she began noting a different type of chest pain, which is described as a "jarring pain" in the left side of her chest. The discomfort typically occurs at rest and lasts about 30 seconds in duration. She has associated tingling down her left arm, dizziness, and confusion with the discomfort. She was asymptomatic in April, but the discomfort returned in May. She denies shortness of breath, orthopnea, PND, edema, syncope, presyncope, palpitations, or abnormal bleeding. Review of Systems: As noted in HPI. All other ROS reviewed and otherwise negative. Past Medical/Surgical History 1. Coronary vasospasm 2. Mild coronary artery disease 3. COPD with ongoing tobacco use 4. Asthma 5. Hypothyroidism 6. GERD 7. Anxiety 8. S/P appendectomy 9. S/P cholecystectomy 10. S/P hysterectomy 11. S/P Tonsillectomy 12. S/P Right carpal tunnel surgery 13. S/P left hand surgery 14. S/P dental extraction Family History Diabetes mellitus FHx: cancer Gallbladder disease Heart disease Hypertension Kidney disease Kidney stones Seizures She has 2 sisters with a history of [place] and CABG in their 50s. Social History Smoking Status: Current Every Day Smoker History of Alcohol Use: No She is with children and grandchildren. She is not currently working. She has smoked since age 15 and is currently smoking 1 ppd. She denies alcohol or illicit drug use. Review of Systems Cardiac: + chest pain Allergies Coded Allergies: Aspirin (Verified Allergy, Unknown, HIVES, SOB, 06/28/17) Sulfa Drugs (Verified Allergy, Unknown, HIVES, SOB, 06/28/17) Medications Current Inpatient Medications Medications (Trade) Dose Ordered Sig/Esme Route Start Time Stop Time Status Last Admin Dose Admin Albuterol (Ventolin Hfa Inhaler) 2 puffs Q6H PRN INH 06/28/17 23:00 07/28/17 22:59 Amitriptyline HCl (Elavil Tab) 50 mg HS PO 06/29/17 21:00 07/29/17 20:59 Atorvastatin Calcium (Lipitor Tab) 20 mg QAM PO 06/29/17 09:00 07/29/17 08:59 06/29/17 08:01 20 MG Clonazepam (Klonopin Tab) 0.5 mg HS PO 06/29/17 21:00 07/29/17 20:59 Clopidogrel Bisulfate (plAVix TAB) 75 mg QAM PO 06/29/17 09:00 07/29/17 08:59 06/29/17 08:01 75 MG Diltiazem HCl (Cardizem Cd Cap) 120 mg DAILY PO 06/29/17 09:00 07/29/17 08:59 06/29/17 08:01 120 MG Divalproex Sodium (Depakote Extended Rel Tab) 500 mg HS PO 06/29/17 21:00 07/29/17 20:59 Salmeterol Xinafoate/ Fluticasone (Advair Diskus 500/50 Inh) 1 puff BID INH 06/29/17 09:00 07/29/17 08:59 06/29/17 08:00 1 PUFF Levothyroxine Sodium (Synthroid Tab) 75 mcg DAILYBB PO 06/29/17 06:30 07/29/17 06:29 06/29/17 06:02 75 MCG Sertraline HCl (Zoloft Tab) 100 mg BID PO 06/29/17 09:00 07/29/17 08:59 06/29/17 08:01 100 MG Isosorbide Mononitrate (Imdur Ext Rel Tab) 15 mg QAM PO 06/29/17 09:00 07/29/17 08:59 06/29/17 08:01 15 MG Ranitidine HCl (zANTac TAB) 300 mg BID PO 06/29/17 09:00 07/29/17 08:59 06/29/17 08:01 300 MG Enoxaparin Sodium (Lovenox Inj) 40 mg Q24H SC 06/29/17 09:00 07/29/17 08:59 06/29/17 08:02 40 MG Acetaminophen (Tylenol Tab) 650 mg Q4H PRN PO 06/28/17 23:00 07/28/17 22:59 Al Hydrox/Mg Hydrox/Simethicone (Maalox Max Susp) 15 ml Q4H PRN PO 06/28/17 23:00 07/28/17 22:59 Magnesium Hydroxide (Milk Of Magnesia Susp) 30 ml Q12H PRN PO 06/28/17 23:00 07/28/17 22:59 Zolpidem Tartrate (Ambien Tab) 5 mg HSZ PRN PO 06/28/17 23:00 07/28/17 22:59 Ondansetron HCl (Zofran Inj) 4 mg Q6H PRN IV 06/28/17 23:00 1/4/18 22:59 Nitroglycerin (Nitrostat Tab) 0.4 mg UD PRN SL 06/28/17 23:00 07/28/17 22:59 Morphine Sulfate (MoRPHine SULFATE INJ) 2 mg Q30M PRN IV 06/28/17 23:00 07/12/17 22:59 06/29/17 09:09 2 MG Polyethylene (Miralax Powder Packet) 17 gm DAILY PRN PO 06/28/17 23:00 07/28/17 22:59 Miscellaneous (Iv Fluids Completed) 1 ea PRN PRN N/A 06/28/17 23:45 06/28/18 23:44 Physical Exam Vital Signs Past 12 Hours Date Time Temp Pulse Resp B/P (MAP) Pulse Ox O2 Delivery O2 Flow Rate FiO2 06/29/17 08:00 95 Nasal Cannula 2.0 06/29/17 07:30 36.5 76 16 111/66 (81) 95 Nasal Cannula 2.0 06/29/17 04:12 36.4 73 16 122/76 (91) 92 Nasal Cannula 1.0 06/29/17 04:00 Nasal Cannula 2.0 06/29/17 00:45 36.8 79 20 126/80 92 Room Air 06/29/17 00:39 80 18 104/74 92 06/29/17 00:05 80 06/28/17 23:27 86 18 123/74 92 Room Air 06/28/17 22:38 86 18 132/74 92 Room Air 06/28/17 21:35 83 18 114/71 94 Room Air Constitutional: Alert, oriented, in no acute distress. Oxygen via nasal cannula HEENT: Head is atraumatic and normocephalic. EOMs intact. Sclera anicteric. Face is symmetric. No perioral cyanosis. Mucous membranes moist. Neck: Supple, no JVD, no carotid bruits Pulmonary: Normal respiratory effort, clear to auscultation bilaterally Cardiac: Regular rate and rhythm, normal S1 and S2, no gallops, no rubs, no murmurs Extremities: No clubbing, cyanosis, or edema. Pulses 2+ and symmetric Abdomen: Normal bowel sounds, soft, non-tender, no abdominal mass palpated Skin: Normal skin color, turgor, and pigmentation, no rash, no skin lesions Neurological: Oriented to person, place, and time Data Laboratory Results: Last 24 Hours Test 06/28/17 20:17 06/28/17 21:48 06/29/17 05:03 White Blood Count 7.26 K/uL Red Blood Count 4.13 M/uL Hemoglobin 13.1 g/dL Hematocrit 37.8 % Mean Corpuscular Volume 91.5 fL Mean Corpuscular Hemoglobin 31.7 pg Mean Corpuscular Hemoglobin Concent 34.7 g/dl Platelet Count 189 K/uL Mean Platelet Volume 9.7 fL Neutrophils (%) (Auto) 44.9 % Lymphocytes (%) (Auto) 44.4 % Monocytes (%) (Auto) 6.1 % Eosinophils (%) (Auto) 4.0 % Basophils (%) (Auto) 0.3 % Neutrophils # (Auto) 3.27 K/uL Lymphocytes # (Auto) 3.22 K/uL Monocytes # (Auto) 0.44 K/uL Eosinophils # (Auto) 0.29 K/uL Basophils # (Auto) 0.02 K/uL RDW Standard Deviation 46.1 fL RDW Coefficient of Variation 14.0 % Immature Granulocyte % (Auto) 0.3 % Immature Granulocyte # (Auto) 0.02 K/uL Prothrombin Time 10.0 SECONDS Prothromb Time International Ratio 1.0 Activated Partial Thromboplast Time 27.8 SECONDS Partial Thromboplastin Ratio 1.1 D-Dimer 410 ug/L FEU Sodium Level 140 mmol/L Potassium Level 3.4 mmol/L Chloride Level 106 mmol/L Carbon Dioxide Level 26 mmol/L Anion Gap 8.0 mmol/L Blood Urea Nitrogen 7 mg/dl Creatinine 0.80 mg/dl Est Creatinine Clear Calc Drug Dose 95.6 ml/min Estimated GFR () 96.2 Estimated GFR (Non- 83.0 BUN/Creatinine Ratio 8.2 Random Glucose 113 mg/dl Calcium Level 9.2 mg/dl Total Bilirubin 0.3 mg/dl Aspartate Amino Transf (AST/SGOT) 15 U/L Alanine Aminotransferase (ALT/SGPT) 28 U/L Alkaline Phosphatase 88 U/L Troponin I < 0.015 ng/ml < 0.015 ng/ml < 0.015 ng/ml Total Protein 7.6 gm/dl Albumin 3.7 gm/dl Globulin 3.9 gm/dl Albumin/Globulin Ratio 1.0 Right shoulder and CXR: No acute process EKG 06/28/17 @ 20:09 showed sinus rhythm with nonspecific T wave abnormality. Repeat EKG @ 21:44 showed sinus rhythm with T wave inversion in leads V4-V6 Telemetry reviewed: Sinus rhythm. Cardiac catheterization 09/09/2012: 30% mid LAD stenosis. Other coronary arteries were normal. Assessment & Plan ASSESSMENT/PLAN: 1. Chest pain: The patient reports 3 different types of chest pain. The discomfort which led to her current admission appears more pleuritic in nature. The discomfort occurring since February is atypical in nature as it occurs at rest and lasts only 30 seconds in duration. Her chronic discomfort occurring intermittently over the last several years appears more concerning in that it is relieved with nitro. This discomfort could be secondary to Prinzmetal angina , although, it is difficult to make a definitive diagnosis of this. Fortunately , her cardiac enzymes have been negative, but given her dynamic EKG changes, it is recommended that she undergo an echocardiogram for further evaluation of her LV systolic function and wall motion. If her resting echo is normal, will proceed with a stress test for further evaluation of myocardial ischemia. It is also recommended that her isosorbide mononitrate be increased to 30 mg daily to treat possible vasospasm. Would continue Diltiazem as prescribed. 2. Coronary artery disease: She had mild, nonobstructive CAD by cardiac cath in 2012. Recommend an echocardiogram with possible stress echo as noted above. Continue Plavix as prescribed given her history of aspirin allergy. Recommend increasing her atorvastatin to 40 mg daily given the fact that high intensity statin therapy is indicated with known CAD. 3. Tobacco abuse: Recommend discontinuing smoking. Thank you for allowing us to see this patient in consultation. The patient was discussed with Dr. Vuong, who will also be in to see the patient today. Addendum by Cardiology attending: Patient was seen and examined on 06/29/2017. Agree with above with following additions. She has described 3 separate chest discomforts as noted above. Her presenting symptom was a right-sided chest discomfort into her right shoulder and into the central chest. It was constant since 3:00 p.m. yesterday and worse with movement of her right upper extremity/torso. There also was a pleuritic component. Despite constant chest discomfort she has had negative troponins. She did developed lateral T-wave abnormality on ECGs, which was a new finding compared to prior ECG. She denies syncope, near-syncope, shortness of breath. History reviewed as noted above. Exam notable for: Vitals reviewed. Neck no JVD Cardiac: Normal S1 and S2. Regular. No murmurs, rubs, or gallops. Lungs: Clear to auscultation bilaterally. Extremities: No edema or cyanosis. ECGs personally reviewed. ECG 06/28/2017 at 9:44 a.m. demonstrated sinus rhythm at 80 beats per minute. Lateral T-wave inversion. Labs reviewed. ASSESSMENT/PLAN: 1. Chest pain: She has 3 distinct chest pain syndromes. Her presenting chest discomfort is very atypical and is not overly concerning for ischemic heart disease but given abnormal ECG, echocardiogram ordered and if no new wall motion abnormalities were noted, would proceed with dobutamine stress echo. The chest discomfort for which she takes nitroglycerin, is also not overly convincing for angina as a persists for 20-30 minutes on average despite taking 2 or 3 nitroglycerin tablets. Symptoms are also not typically due to exertion. Because she feels as though nitroglycerin does help her somewhat, recommend increasing isosorbide mononitrate to 30 mg daily to see if that offers any benefit. There was concern in the past for vaso spasm as apparently this was noted from the coronary diagnostic catheter inducing spasm in the past. She is also on calcium channel eligio. 2. CAD: She does have minimal nonobstructive CAD within the mid LAD on 2012 cardiac catheterization cardiac catheterization images were personally reviewed recommend continuation of anti-platelet therapy. Recommend high- intensity statin therapy. Recommend smoking cessation. risk factor modification recommended. 3. Tobacco abuse: Recommended that she stop smoking. 4. Disposition: If echo and stress echo are unremarkable, would recommend no further ischemic evaluation at this time. Following initial recommendations, echocardiogram images were personally reviewed and demonstrated normal wall motion and LV systolic function. This progressed to a dobutamine stress echo. Dobutamine stress echo was negative for ischemia and she did not have any induced chest discomfort from the stress testing pharmacologic agents. No further cardiac evaluation recommended at this time. Thank you for allowing me to participate in the care of your patient. Please call for any other questions or concerns. Sincerely, Jonny Vuong M.D. Medication Reconciliation New Medications: Oxycodone HCl (Oxycodone HCl) 5 Mg Tab 1 TAB PO Q6H for Pain for 5 Days, #15 TAB 0 Refills Continued Medications: Albuterol (Ventolin Hfa) Aers 1-2 PUFFS INH BID PRN for Shortness of Breath Amitriptyline Hcl (Amitriptyline) 25 Mg Tab 50 MG PO HS, TAB Atorvastatin (Lipitor) 20 Mg Tab 20 MG PO QAM, TAB Clonazepam (Klonopin) 1 Mg Tab 0.5 MG PO HS, TAB Clopidogrel Bisulfate (Clopidogrel) 75 Mg Tab 75 MG PO QAM Diltiazem Hcl Coated Beads (Diltiazem Hcl Er) 120 Mg Cap 120 MG PO DAILY Divalproex Sodium (Depakote Er) 500 Mg Tab 500 MG PO HS Fluticasone Prop/Salmeterol (Advair Diskus 500/50 60 Dose) 1 Ea Aerp 1 PUFFS INH BID, #1 INHALER Isosorbide Dinitrate (Isordil) 30 Mg Tab 15 MG PO QAM, TAB Levothyroxine Sodium (Levothyroxine Sodium) 75 Mcg Tab 1 TAB PO QAM, TAB 3 Refills Metformin Hcl (Glucophage) 500 Mg Tab 500 MG PO BID, TAB Ranitidine (Zantac) 300 Mg Tab 300 MG PO BID, TAB Sertraline Hcl (Zoloft) 100 Mg Tab 100 MG PO BID, TAB Discharge Exam Review of Systems: Constitutional: No chills Respiratory: No cough, No sputum Cardiovascular: No chest pain, No orthopnea Abdomen: No pain, No nausea Neurologic: No memory loss, No paralysis Endocrine: No fatigue Integumentary: No rash Physical Exam: General Appearance: WD/WN, no apparent distress Neck: supple Respiratory/Chest: chest non-tender, lungs clear, normal breath sounds Cardiovascular: regular rate, rhythm Abdomen / GI: normal bowel sounds, non tender, soft Extremities: normal inspection Skin: normal color Lymphatic: no adenopathy Hospital Course HPI: 57 y/o F Hx, COPD, HTN, thyroid disease, depression, Metabolic syndrome, coronary vasospasm, active smoker. Presents with pain across the top of her chest and radiating into her L shoulder, accompanied by SOB. The pain is exacerbated with activity. Denies N/V, diaphoresis or lightheadedness. Consecutive troponins obtained in the ER were negative, however, an EKG showed lateral changes which correlated with an additional episode of CP in the ER. Hopsital Course During hospital stay, patient's history did not appear to be cardiac in nature. She had a dobutamine stress test which was negative. Cardio consult was obtained and did not recommend further studies. Patient will be discharged COPD - cont prescribed inhalers and 02 HS HTN - cont Diltiazem, Imdur Hypothyroidism - cont Synthroid Pt is a smoker - does not confer interest in cessation Total Time Spent: Greater than 30 minutes This includes examination of the patient, discharge planning, medication reconciliation, and communication with other providers. Discharge Instructions Please refer to the electronic Patient Visit Report (Discharge Instructions) for additional information. Follow-Up As stated in discharge instructions Additional Copies To Yonathan Pederson Jr, D.O.
--- NOTE | 2017-06-29 16:15 | DOBUTAMINE ECHO ---
*NOTICE TO RECE[employer]ING [employer] This information is strictly Confidential and protected under [place] law. [place] law prohibits you from making any further disclosure of this information unless further disclosure is expressly permitted by the written consent of the person to whom it pertains or is authorized by law. A general authorization for the release of medical or other information is not sufficient for this purpose. Hospital accepts no responsibility if the information is made available to any other person, INCLUDING THE PATIENT. Interpretation Summary * Name: YAMIL PAYNE Study Date: 06/29/2017 10:40 AM BP: 114/58 mmHg * Patient Location: [facility]\S\N280\S\2 HR: 78 * : 1960 (M/d/yyyy) Gender: Female Height: 68 in * Age: 57 yrs Ethnicity: [place] Weight: 204 lb * Ordering Physician: Heladio Vuong * Referring Physician: Self, Referred * Performed By: Kaia Sesay RDCS * * Reason For Study: Chest Pain * BSA: 2.1 m2 * -- Conclusions -- * Dobutamine Stress Echo: * 1. Negative Dobutamine stress echo for ischemia at 86 % MPHR. * 2. Indeterminate Dobutamine ECG for ischemia at 86 % MPHR. (baseline ST abnormalities) * 3. Appropriate blood pressure response. * 4. No arrhythmia. * 5. No chest pain reported. * 6. Technically difficult study, enhanced with IV Definity. * Echo: * 1. Normal left ventricular size and systolic function. EF 60-65%. No regional wall motion abnormalities. No left ventricular hypertrophy. Type 2 diastolic dysfunction; pseudo normalized pattern. * 2. Mild mitral regurgitation. Procedure Details * DOBUTAMINE ECHO, CPT#33600 * ECHO DOPPLER, CPT #[id number] * ECHO COLOR FLOW, CPT #[id number] * A contrast injection of Definity was performed to improve assessment of LV function. * Contrast was injected into an intravenous site in the right arm. * One vial of Definity ultrasound contrast was diluted in normal saline to a total volume of 10 ml. A total of '8' ml of solution was administered during imaging. * Lot # [id number] of Definity utilized for procedure. * Expiration date . * The attending nurse who injected the contrast agent was Tracy Bland RN. Left Ventricle * The left ventricle is normal in size. * There is normal left ventricular wall thickness. * Ejection Fraction = 60-65%. * Resting wall motion: Normal. Stress wall motion: Appropriate increase in Left ventricular systolic function and decrease in cavity size. No stress induced segmental wall motion abnormalities. * The left ventricular ejection fraction increases normally with stress. The left ventricular end-systolic cavity size reduces post-stress (normal response). The left ventricular wall motion with stress is normal. * No regional wall motion abnormalities noted. Right Ventricle * The right ventricle is normal in size and function. * The right ventricular systolic function is normal as assessed by tricuspid annular plane systolic excursion (TAPSE) (normal >1.5 cm). Atria * The left atrial size is normal. * Right atrial size is normal. * There is no evidence of atrial septal defect, but resolution does not allow assessment for a patent foramen ovale. Mitral Valve * The mitral valve is grossly normal. * There is no mitral valve stenosis. * There is mild mitral regurgitation. Tricuspid Valve * The tricuspid valve is not well visualized, but is grossly normal. * There is no tricuspid stenosis. * There is trace tricuspid regurgitation. Aortic Valve * The aortic valve is trileaflet. * No hemodynamically significant valvular aortic stenosis. * No aortic regurgitation is present. Pulmonic Valve * The pulmonary valve is inadequately visualized, but the Doppler data is adequate for interpretation. * There is no significant pulmonary regurgitation. Great Vessels * The aortic root is normal size. * Ascending aorta of normal dimension * Normal pulmonary venous flow pattern. Normal IVC size and inspiratory collapse. Pericardium * There is no pericardial effusion. Stress Parameters * NSR at [address]/T wave abnormalities. * There was progression of baseline ST abnormalities. No new significant ST changes. * The stress portion of this study was personally supervised by the undersigned interpreting physician. * Rest heart rate was '78' BPM. * Rest blood pressure was '114/58' * Maximum heart rate achieved was 142 bpm. * Maximum heart rate was 86 % of maximum age-predicted heart rate. * Maximum blood pressure was '144/60' * Maximum Dobutamine infusion rate was '50' mcg/kg/min. * A total of 0.5 mg of intravenous Atropine was used to supplement Dobutamine for heart rate response. * Dobutamine infusion was terminated due to achieving target heart rate * A total of 5 mg of IV Metoprolol was administered to reverse Dobutamine-induced tachycardia. * The patient did not exhibit any symptoms during drug infusion. MMode 2D Measurements and Calculations IVSd 1.1 cm IVSs 1.2 cm LVIDd 4.4 cm LVIDs 3.0 cm LVPWd 1.1 cm LVPWs 1.4 cm IVS/LVPW 1.0 FS 32.6 % EDV(Teich) 88.3 ml ESV(Teich) 34.3 ml EF(Teich) 61.1 % EDV(cubed) 85.9 ml ESV(cubed) 26.3 ml EF(cubed) 69.3 % % IVS thick 3.9 % % LVPW thick 23.6 % LV mass(C)d 178.0 grams LV mass(C)dI 86.3 grams/m\S\2 LV mass(C)s 121.8 grams LV mass(C)sI 59.1 grams/m\S\2 SV(Teich) 54.0 ml SI(Teich) 26.2 ml/m\S\2 SV(cubed) 59.6 ml SI(cubed) 28.9 ml/m\S\2 Ao root diam 3.2 cm Ao root area 8.3 cm\S\2 ACS 2.2 cm LA dimension 3.3 cm asc Aorta Diam 3.1 cm LA/Ao 1.0 Doppler Measurements and Calculations MV E max tad 101.4 cm/sec MV A max tad 69.4 cm/sec MV E/A 1.5 MV dec time 0.20 sec Ao V2 max 121.6 cm/sec Ao max PG 5.9 mmHg Ao max PG (full) 2.1 mmHg LV V1 max PG 3.8 mmHg LV V1 max 97.5 cm/sec TV E max tad 57.7 cm/sec PA V2 max 111.8 cm/sec PA max PG 5.0 mmHg TR max tad 244.3 cm/sec RVSP(TR) 26.9 mmHg RAP systole 3.0 mmHg
[2017-06-29] MEDS ORDERED: CLONAZEPAM 0.5 MG TAB PO SCH (21:00)
[2017-06-29] MEDS ORDERED: AMITRIPTYLINE HCL 50 MG TAB PO SCH (21:00)
[2017-06-29] MEDS ORDERED: DIVALPROEX 500 MG EXTENDED RELEASE TAB PO SCH (21:00)
== END 2017-06-29 16:30 | disposition home or self-care (01) ==
LOC: C.EDB 19:09 → C.MED 23:19 → ENRESERV 06-29 00:10
PROVIDERS: ADMIT Internal Medicine; ATTEND Internal Medicine
DX: R07.89 Other chest pain (principal); J44.9 Chronic obstructive pulmonary disease, unspecified; I10 Essential (primary) hypertension; F17.200 Nicotine dependence, unspecified, uncomplicated; I25.10 Atherosclerotic heart disease of native coronary artery without angina pectoris; E11.9 Type 2 diabetes mellitus without complications; J45.909 Unspecified asthma, uncomplicated; E03.9 Hypothyroidism, unspecified; K21.9 Gastro-esophageal reflux disease without esophagitis; Z90.89 Acquired absence of other organs; Z90.49 Acquired absence of other specified parts of digestive tract; Z88.2 Allergy status to sulfonamides; Z79.899 Other long term (current) drug therapy; Z82.49 Family history of ischemic heart disease and other diseases of the circulatory system

== ENCOUNTER → 2017-09-20 | Outpatient (CLI) | payer OTHER ==
[~2017-09-20] MED LIST changes: -BUPR-79 PO; -CHN/1 PO; +DILT120C PO; +PLV75 PO; +RXC5 PO
--- NOTE | 2017-09-20 12:00 | DIAGNOSTIC IMAGING REPORT ---
CT LUNG SCREENING, LOW DOSE WITH COMPUTER-AIDED DETECTION (CAD) CLINICAL HISTORY: Smoker COMPARISON STUDY: No previous studies for comparison. CT DOSE: 78.43 mGy.cm TECHNIQUE: Low-dose helical CT was acquired without intravenous contrast from lung apices to bases and reconstructed at 2.5 mm every 2 mm. CAD was utilized for this study. A dose lowering technique was utilized adhering to the principles of ALARA. FINDINGS: Thyroid: Imaged portions of the thyroid gland are normal in appearance. Thoracic aorta: The thoracic aorta is normal in course and caliber, noting standard 3 vessel arch anatomy. Heart: The heart is normal in size and configuration, without pericardial effusion. Lungs and pleural spaces: There is moderate pulmonary emphysema. There are no pleural effusions. There is a solid 7.8 mm left lower lobe pulmonary nodule as visualized on image #[id number]. Mediastinum: There is no mediastinal lymphadenopathy. Lissett: Clear. Axilla: Clear. Upper abdomen: Partially visualized upper abdominal viscera is within normal limits. Skeletal structures: There are no lytic or blastic osseous lesions. IMPRESSION: 1. Moderate emphysema 2. Solid 7.8 mm left lower lobe pulmonary nodule. Lung RADS 3. 6 month follow-up CT scan is recommended. Electronically signed by: Mark Rashid M.D. 09/20/2017 11:59 AM Dictated Date/Time: 09/20/2017 10:22 AM
== END | disposition home or self-care (01) ==
LOC: C.CTS 09:34
DX: Z12.2 Encounter for screening for malignant neoplasm of respiratory organs (principal); J43.9 Emphysema, unspecified; R91.1 Solitary pulmonary nodule; Z87.891 Personal history of nicotine dependence

== ENCOUNTER → 2017-09-22 | Outpatient (CLI) | payer OTHER ==
--- NOTE | 2017-09-23 00:58 | PULMONARY FUNCTION TEST ---
INTERPRETATION: Spirometry is consistent with a mild obstructive pattern. Repeat study done following bronchodilators showed mild but not significant improvement in function. FEV1 improved by 9%. Flow volume loops are consistent with spirometric findings.
== END | disposition home or self-care (01) ==
LOC: C.RC 13:30
DX: J44.9 Chronic obstructive pulmonary disease, unspecified (principal)

== ENCOUNTER → 2018-02-21 | Outpatient (CLI) | payer OTHER ==
[~2018-02-21] MED LIST changes: -CLON1TAB3 PO; +CLON1TAB4 PO; +DILT-213 PO; -DILT120C PO
[2018-02-21 14:35] LABS: BASO % 0.4 %; BASO ABS # 0.02 K/uL (0-0.2); EOS ABS # 0.32 K/uL (0-0.5); HEMATOCRIT 39.5 % (37-47); HEMOGLOBIN 13.2 g/dL (12.0-16.0); IG# 0.01 K/uL (0.00-0.02); LYMPH % 39.1 %; LYMPH ABS # 2.08 K/uL (1.2-3.4); MEAN CORPUSCULAR HEMOGLOBIN 29.7 pg (25-34); MEAN CORPUSCULAR HGB CONC 33.4 g/dl (32-36); MEAN PLATELET VOLUME 10.3 fL (7.4-10.4); MONO % 5.8 %; MONO ABS # 0.31 K/uL (0.11-0.59); NEUT % 48.5 %; NEUT ABS # 2.58 K/uL (1.4-6.5); PLATELET COUNT 146 K/uL (130-400); RED CELL DISTRIBUTION WIDTH CV 13.6 % (11.5-14.5); RED CELL DISTRIBUTION WIDTH SD 44.7 fL (36.4-46.3); WHITE BLOOD COUNT 5.32 K/uL (4.8-10.8)
[2018-02-21 15:15] LABS: BLOOD UREA NITROGEN 8 mg/dl (7-18); CREATININE 0.81 mg/dl (0.60-1.20); GLUCOSE 83 mg/dl (70-99)
[2018-02-21 15:16] LABS: ALT/SGPT 45 U/L (12-78); AST/SGOT 27 U/L (15-37); CALCIUM 9.7 mg/dl (8.5-10.1); CARBON DIOXIDE 27 mmol/L (21-32); LIPASE 132 U/L (73-393); POTASSIUM 3.8 mmol/L (3.5-5.1); SODIUM 141 mmol/L (136-145)
[2018-02-22 07:06] LABS: HEMOGLOBIN A1C 5.7 % (4.5-5.6)
== END | disposition home or self-care (01) ==
LOC: C.LAB 12:22
DX: E03.9 Hypothyroidism, unspecified (principal); G62.9 Polyneuropathy, unspecified; E88.81 Metabolic syndrome and other insulin resistance

== ENCOUNTER → 2018-02-21 | Outpatient (CLI) | payer OTHER ==
--- NOTE | 2018-02-22 14:54 | MAMMOGRAPHY REPORT ---
BILATERAL DIGITAL SCREENING MAMMOGRAM TOMOSYNTHESIS WITH CAD: 02/21/2018 CLINICAL HISTORY: Routine screening. Patient has no complaints. TECHNIQUE: The study was acquired using full field digital technology and interpreted from soft copy. Breast tomosynthesis in addition to standard 2D mammography was performed. Current study was also ev aluated with a Computer Aided Detection (CAD) system. COMPARISON: Comparison is made to exams dated: 09/18/2012 mammogram, 12/15/2005 mammogram, 12/08/2005 m ammogram, and 09/28/2000 mammogram - [facility]. BREAST COMPOSITION: There are scattered areas of fibroglandular density in both breasts. FINDINGS: There are possible clusters of microcalcifications in the left breast lower inner anterior breast and central breast, for which additional spot magnification views are recommended. At the parul e of repeat imaging of the left breast, bilateral MLO views are recommended to include more superiorl y in the axillary regions. No other suspicious mass, architectural distortion or cluster of microcalcifications is seen. IMPRESSION: ACR BI-RADS CATEGORY 0: INCOMPLETE EVALUATION: NEED ADDITIONAL IMAGING EVALUATION 1. Possible clusters of microcalcifications in the left breast need additional imaging evaluation. 2. At the time of diagnostic imaging of the left breast, repeat bilateral to the MLO views are recom mended to ensure inclusion of more superior axillary tissue within the [id number]. The patient will be called to schedule an appointment. Some breast cancers are not detected with mammography. A negative mammographic report should not raz y biopsy if a clinically suggestive mass is present. Sophia Meza M.D. ay/:02/22/2018 08:17:45 Atmospheric Drier Tender: RT Keaton(R)(M), [facility] letter sent: Addl Imaging 0 BI-RADS Code: ACR BI-RADS Category 0: Incomplete Evaluation: Need Additional Imaging Evaluation
== END | disposition home or self-care (01) ==
LOC: C.MAMM 11:52
DX: Z12.31 Encounter for screening mammogram for malignant neoplasm of breast (principal); R92.2 Inconclusive mammogram

== ENCOUNTER → 2018-02-28 | Outpatient (CLI) | payer OTHER ==
--- NOTE | 2018-02-28 14:45 | MAMMOGRAPHY REPORT ---
BILATERAL DIGITAL DIAGNOSTIC MAMMOGRAM TOMOSYNTHESIS: 02/28/2018 CLINICAL HISTORY: 58-year-old woman called back from screening mammography for possible clusters of c alcifications in the left breast. Also repeat MLO views to include more superior tissue. TECHNIQUE: Repeat MLO tomosynthesis images to include more superior tissue in the axillary regions, a nd spot magnification views of the left breast were obtained. COMPARISON: Comparison is made to exams dated: 02/21/2018 mammogram, 09/18/2012 mammogram, 12/15/2005 m ammogram, 12/08/2005 mammogram, and 09/28/2000 mammogram - [facility]. BREAST COMPOSITION: There are scattered areas of fibroglandular density in both breasts. FINDINGS: On the repeat MLO views of the breasts, axillary tissue including morphologically normal ly mph nodes are visualized. No suspicious lymphadenopathy or axillary masses identified. Spot magnification views of the left breast demonstrate numerous small clusters of calcifications christelle t are new comparing to the prior available 2013 mammograms. 2 clusters in particular demonstrate marcie rphous microcalcifications that do not definitely layer on the spot magnification ML views. The firs t is located in the 12:00 middle one third of the breast measuring 3 mm, and has associated ovoid nod ularity. The second cluster in the lower inner anterior left breast measures 4 mm. Given the interv al development, no definitive layering to confirm benign milk of calcium, and slightly differing morp hology, both clusters are indeterminate, warranting further characterization with left breast stereot actic biopsy 2. The remainder of the visualized groupings and clusters of calcifications throughout the left breast demonstrate T cupping or layering on the spot magnification ML view confirming benig n milk of calcium. IMPRESSION: ACR BI-RADS CATEGORY 4: SUSPICIOUS 1. Left breast stereotactic guided biopsy 2 is recommended for newly visualized tiny clusters of in determinate calcifications in the 12:00 middle one third and lower inner anterior left breast. 2. Repeat MLO views to include more superior axillary tissue demonstrate no other suspicious abnorma lities. 3. These results and recommendations were discussed with the patient at the time of the exam. She t entatively schedule the left breast biopsies prior to leaving our department. Some breast cancers are not detected with mammography. A negative mammographic report should not raz y biopsy if a clinically suggestive mass is present. Sophia Meza M.D. ay/:02/28/2018 09:46:58 Car Driver: Agnes Hu, [facility] letter sent: Abnormal 4/5 BI-RADS Code: ACR BI-RADS Category 4: Suspicious
== END | disposition home or self-care (01) ==
LOC: C.MAMM 08:43
DX: R92.0 Mammographic microcalcification found on diagnostic imaging of breast (principal); R92.1 Mammographic calcification found on diagnostic imaging of breast

== ENCOUNTER → 2018-03-08 | Outpatient (CLI) | payer OTHER ==
--- NOTE | 2018-03-08 12:20 | Discharge Instructions ---
Discharge Instructions Procedure Procedure Date: Mar 08, 2018. Reason for visit: Left Calcs X 2. Discharge Discharge Date: Mar 08, 2018. Discharge Diagnosis: status post breast biopsy Instructions Activity Recommendations: Additional Limitations (see below) Return to School/Work: no limitations Recommended Home Diet: No Limitations Provider Instructions: ACTIVITY RECOMMENDATIONS: * No lifting, pushing, pulling or exercising the affected side for three days. RETURN TO SCHOOL/WORK: * You may return to work/school after the procedure, but do not perform any strenuous activities for 24 to 48 hours. MEDICATIONS: * Tylenol (two 325 mg) every four to six hours if needed for mild pain (if not allergic to Tylenol). DIET: * Resume previous diet. SPECIAL CARE INSTRUCTIONS: * Keep biopsy site dry for 24 hours. May shower after 24 hours, but do not soak (bathe) incision. * May remove Tegaderm (plastic patch) 24 hours after procedure * Leave the steri-strips on for one week. Allow the steri-strips to fall off by themselves. If not off after one week, you may remove them. You may place a Bandaid crosswise over the strips, if desired. * Apply ice 10 minutes on and 10 minutes off as needed. * Wear a bra at bedtime to sleep more comfortably for 2-3 days. * Your referring physician should have the results after approximately 5 to 7 business days. * Call for unusual bleeding, fever, drainage, etc or if you have any questions call during normal business hours or after hours call Dr Caraballo, . FOLLOW UP VISIT: Follow-up with Referring Physician as scheduled. Allergies Coded Allergies: Aspirin (Verified Allergy, Unknown, HIVES, SOB, 06/28/17) Sulfa Drugs (Verified Allergy, Unknown, HIVES, SOB, 06/28/17) Theodora Cuellar Recommendations: Call your doctor if: * Temperature above 101 degrees * Pain not relieved by pain medicine ordered * There is increased drainage or redness from any incision * You have any unanswered questions or concerns. Your Doctors Instructions noted above were prepared by provider Padmini Caraballo. Patient Signature Section: Patient Instructions Signature Page Elina Akers Patient (or Guardian) Signature/Date: I have read and understand the instructions given to me by my caregivers. Caregiver/RN/Doctor Signature/Date: The above-named patient and/or guardian has received patient instructions on this date. + Original Patient Signature Page (only) stays with chart. Please make copy for patient.
--- NOTE | 2018-03-09 15:43 | MAMMOGRAPHY REPORT ---
MULTIPLE STEREOTACTIC GUIDED BIOPSIES LEFT BREAST: 03/08/2018 CLINICAL HISTORY: 2 indeterminate clusters of calcifications in the left 12:00 breast and left lower inner quadrant. Microcalcifications left breast. Post Biopsy. PATIENT CONSENT: The procedure, risks, benefits, and alternatives of stereotactic biopsy with clip pl acement were discussed with the patient, and verbal and written consent was obtained. A timeout was performed immediately prior to the procedure. PROCEDURE DESCRIPTION: With stereotactic guidance, aseptic technique, and lidocaine as a local anesth etic (1% lidocaine to anesthetize the skin and 1% lidocaine with epinephrine to anesthetize the deepe r tissues), the small cluster of calcifications in the left 12:00 breast (labeled "site a") was sampl ed multiple times with a 9-gauge vacuum-assisted biopsy needle (Suros Eviva). The path of approach w as medial. The specimen radiograph demonstrates calcifications to be present in the samples. A meta llic marker clip (dumbbell-shaped) was placed at the biopsy site. Immediately thereafter, with stereotactic guidance, aseptic technique, and lidocaine as a local anest hetic (1% lidocaine to anesthetize the skin and 1% lidocaine with epinephrine to anesthetize the deep er tissues), the other small cluster of calcifications in the left lower inner quadrant anteriorly (l abeled "site B ") was sampled multiple times with a 9-gauge vacuum-assisted biopsy needle (Suros Eviv a). The path of approach was medial. The specimen radiograph demonstrates calcifications to be pres ent in the samples. A metallic marker clip (T-shaped) was placed at the biopsy site. Direct pressure was applied at the biopsy sites until hemostasis was achieved. Postprocedural mammo grams were obtained to confirm clip placement; postprocedural left CC and ML views were obtained whic h shows a new dumbbell-shaped biopsy marker clip at the site of the biopsied calcifications in the le ft 12:00 breast. A new T-shaped biopsy clip is seen at the site of the other biopsied calcifications in the left inferior breast at approximately 6:00 anteriorly. No significant postbiopsy hematoma is seen on the postprocedural mammograms. The patient tolerated the procedure without complication. S he was given wound care instructions. COMPARISON: Comparison is made to exams dated: 02/28/2018 mammogram, 02/21/2018 mammogram, 12/15/2005 ma mmogram, 12/08/2005 mammogram, 09/28/2000 mammogram, and 09/18/2012 mammogram - [facility] ter. IMPRESSION: STEREOTACTIC GUIDED BIOPSY Status post stereotactic biopsy of 2 small clusters of calcifications in the left 12:00 breast and le ft lower inner quadrant, with clip placement. The patient will receive pathology results from her [facility] provider. Padmini Caraballo M.D. ah/:03/08/2018 14:21:58 Escrow Manager: Concepción Hinton RT(R)(M), [facility]
== END | disposition home or self-care (01) ==
LOC: C.MAMM 10:47
DX: D24.2 Benign neoplasm of left breast (principal); R92.0 Mammographic microcalcification found on diagnostic imaging of breast

== ENCOUNTER 2019-08-03 07:20 | Inpatient (IN) ==
--- NOTE | 2019-07-16 13:16 | Anesthesiology Consultation ---
Date of Service July 16, 2019 Assessment & Plan (1) Encounter for pre-operative examination: Chart Review Chart Review: Acceptable Risk for Surgery and Patient NOT seen in Pre Admission Testing Consults Requested none History Surgery Operation Date: 07/26/19 08:15 Proposed Procedures p Navigational Bronchoscopy with ICG Markings, - Warren Green MD, FACS s Robotic Left Video Assisted Thoracoscopy with Left Lower Lobe Resection, Possible Left Upper Lobectomy with Mediastinal Lymphadenectomy - Warren Green MD, FACS Height/Weight Height: 5 ft 8 in Weight: 99.79 kg Allergies Allergy/AdvReac Type Severity Reaction Status Date / Time aspirin Allergy Unknown HIVES, SOB Verified 07/13/19 14:42 Sulfa (Sulfonamide Allergy Unknown HIVES, SOB Verified 07/13/19 14:42 Antibiotics) Medications Home Medications Medication Instructions Recorded Confirmed Last Taken Trelegy Ellipta 1 inh INHALATION QAM 03/02/19 07/13/19 Unknown albuterol sulfate [ProAir HFA] 2 puff INHALATION Q4H PRN 03/02/19 07/13/19 03/01/19 08:00 amitriptyline 25 mg PO HS 03/02/19 07/13/19 03/14/19 21:00 atorvastatin 20 mg PO QAM 03/02/19 07/13/19 03/14/19 08:00 clonazepam 0.5 mg PO HS 03/02/19 07/13/19 03/14/19 21:00 divalproex 1,000 mg PO HS 03/02/19 07/13/19 03/14/19 21:00 isosorbide mononitrate 15 mg PO QAM 03/02/19 07/13/19 03/14/19 08:00 levothyroxine 200 mcg PO QAM 03/02/19 07/13/19 03/14/19 08:00 metformin 500 mg PO BID 03/02/19 07/13/19 03/14/19 21:00 nitroglycerin [Nitrostat] 0.4 mg SUBLINGUAL UD PRN 03/02/19 07/13/19 Unknown ranitidine HCl 300 mg PO BID 03/02/19 07/13/19 03/14/19 21:00 sertraline 100 mg PO BID 03/02/19 07/13/19 03/14/19 21:00 clopidogrel 75 mg PO QAM 07/13/19 07/13/19 Unknown diltiazem HCl 120 mg PO QAM 07/13/19 07/13/19 Unknown lorazepam 0.5 mg PO UD PRN 07/13/19 07/13/19 Unknown Past Medical History Medical History (Updated 07/16/19 @ 13:16 by Eyal Novak MD) Anxiety AP (angina pectoris) ANGINA AT REST & EXERTION, PT REPORTS NOTICES MOST WHEN ANXIOUS COPD (chronic obstructive pulmonary disease) Depression Diverticular disease GERD (gastroesophageal reflux disease) Hiatal hernia Hyperlipidemia Hypothyroidism Neuropathy FEET/LEGS On home oxygen therapy 2 L/MIN HS AND PRN DURING DAY Pre-diabetes Pulmonary emphysema Solitary lung nodule Past Surgical History Surgical History (Updated 07/13/19 @ 15:16 by Butch Green RN) History of appendectomy History of cardiac cath MOST RECENT: 4-5 YRS AGO AGO [facility] NO STENTS NEEDED TOTAL OF 2 OR 3 CATHS - NO STENTS NEEDED ([facility]) History of cholecystectomy History of colonoscopy History of endoscopy History of esophagogastroduodenoscopy (EGD) History of hysterectomy TOTAL History of tonsillectomy Social History Smoking Status: Former smoker Smoking cigarettes per day: 20 Do You Dip or Chew Tobacco: No Smoking End Date: 2 YR AGO Hx Alcohol Use: Yes Alcohol type: other alcohol intake frequency: holidays/special occasions only Hx Substance Use: No substance use type: does not use Testing Laboratory Results Laboratory Tests 06/28/17 01/02/19 07/13/19 20:17 08:34 08:25 WBC 4.74 L Hgb 13.3 Hct 37.9 Plt Count 122 L PT 10.0 INR 1.0 APTT 27.8 Sodium Potassium Chloride Carbon Dioxide BUN Creatinine Glucose Hemoglobin A1c 5.5 07/13/19 08:25 WBC Hgb Hct Plt Count PT INR APTT Sodium 141 Potassium 3.6 Chloride 106 Carbon Dioxide 28 BUN 10 Creatinine 0.83 Glucose 119 H Hemoglobin A1c Electrocardiogram Date: 12/20/18 Findings: + NSR @ (91) and + NSST changes Stress Test Date: 01/18/19 Type: DSE Findings: + WNL
[~2019-08-03 07:20] MED LIST changes: -ADVIN50/60 INH; -ALBUAER2 INH; -AMIT25TA19 PO; -ATOR-22 PO; -CLON1TAB4 PO; -DILT-213 PO; -DIVA500T3 PO; -GLC/500 PO; -ISR/30 PO; -LEVO75TA5 PO; +LR 15ML/HR IV SCH; -PLV75 PO; -RANI300T2 PO; -RXC5 PO; -SERT1TAB68 PO
[2019-08-03] MEDS ORDERED: GLYCOPYRROLATE 0.2 MG/ML VIAL ONE (08:20)
[2019-08-03] MEDS ORDERED: ONDANSETRON INJ 2 MG/ML 2 ML VIAL ONE ×2 (08:20→14:33)
[2019-08-03] MEDS ORDERED: fentaNYL citrate 100 MCG/2 ML VIAL ONE ×2 (08:20→14:10)
[2019-08-03] MEDS ORDERED: PROPOFOL IV EMULSION 10 MG/ML 20 ML VIAL IV ONE (08:20)
[2019-08-03] MEDS ORDERED: LIDOCAINE HCL 2% 2 ML VIAL/AMP(20MG/ML) INFIL ONE (08:20)
[2019-08-03] MEDS ORDERED: MIDAZOLAM HCL 1 MG/ML 2ML VIAL ONE (08:20)
[2019-08-03] MEDS ORDERED: DEXAMETHASONE SOD INJ 4 MG/ML VIAL ONE (08:20)
[2019-08-03] MEDS ORDERED: NEOSTIGMINE METHYLSULFATE 5 MG/5 ML SYR ONE (08:20)
[2019-08-03] MEDS ORDERED: LABETALOL HCL IV 5 MG/ML 20ML IV PRN (08:36)
[2019-08-03] MEDS ORDERED: ONDANSETRON INJ 2 MG/ML 2 ML VIAL IV PRN ×2 (08:36→15:52)
[2019-08-03] MEDS ORDERED: ATROPINE SULFATE 0.1 MG/ML 10ML SYR IV PRN (08:36)
[2019-08-03] MEDS ORDERED: ALBUTEROL 0.083% NEBU SOLN 3 ML VIAL INH PRN (08:36)
--- NOTE | 2019-08-03 09:25 | History & Physical Bridge Note ---
Date of Service August 03, 2019 History & Physical Bridge Note I have examined the patient, reviewed the History & Physical and in the interval since the performance of the History & Physical I have noted the following changes of clinical significance: no changes noted
[2019-08-03] MEDS ORDERED: CEFAZOLIN 2,000 MG/15 ML IV PUSH IV ONE (09:33)
[2019-08-03] MEDS ORDERED: BUPIVACAINE 0.5 % 5 MG/1 ML MPF 30ML VIAL ONE (09:35)
[2019-08-03] MEDS ORDERED: SODIUM CHLORIDE 0.9% PF 50 ML VIAL ONE (09:36)
[2019-08-03] MEDS ORDERED: BUPIVACAINE LIPOSOME 1.3% 266 MG/20 ML VIAL ONE (09:36)
--- NOTE | 2019-08-03 11:08 | Fluoroscopy Report ---
FL chest 1V frontal CLINICAL HISTORY: NAVIGATIONAL BRONCH WITH ICG MARKINGS IN OR COMPARISON STUDY: Chest CT 06/27/2019. FLUOROSCOPY TIME: 29 seconds. FINDINGS: A single fluoroscopic spot image of the left lung base was submitted. There is a bronchosco pe identified within the left lower lobe. IMPRESSION: Fluoroscopy provided for bronchoscopy. ACT 112: Negative or not required by law. Electronically signed by: Carlyle Mancuso M.D. 08/03/2019 11:07 AM
[2019-08-03] MEDS ORDERED: INDOCYANINE GREEN 25 MG/10 ML INJ ONE (11:16)
[2019-08-03] MEDS ORDERED: CEFAZOLIN 1000MG 1,000 MG/7.5 ML SYR IV ONE ×2 (11:17→12:23)
[2019-08-03] MEDS ORDERED: CEFAZOLIN 250 MG/ML 1 GM VIAL ONE (11:24)
[2019-08-03] MEDS ORDERED: PHENYLEPHRINE 100MCG/ML 5ML SYR ONE (11:24)
[2019-08-03] MEDS ORDERED: ROCURONIUM BROMIDE 10 MG/ML 5 ML VIAL ONE (11:37)
[2019-08-03] MEDS ORDERED: PHENYLEPHRINE HCL 10 MG/ML VIAL ONE (12:39)
[2019-08-03] MEDS ORDERED: ePHEDrine sulfate 50 MG/ML SYR ONE (12:39)
--- NOTE | 2019-08-03 13:54 | Operative Report ---
PG Post Operative Report Pre & Post Diagnosis Operation Date: 08/03/19 09:30 Pre-Op Diagnosis: Left Lower Lobe Lung Nodule Post-Op Diagnosis: Adenocarcinoma left lower lobe I identified the patient and participated in the time-out.: Yes Procedure Operation Date: 08/03/19 09:30 Actual Procedures p Navigational Bronchoscopy with ICG Markings, - Warren Green MD, FACS s Robotic Left Video Assisted Thoracoscopy with Left Lower Lobe Resection, Left Lower Lobectomy with Mediastinal Lymphadenectomy(Left) - Warren Green MD, FACS Surgeon Warren Green MD, FACS Allergy Physician Ismael REID Estimated Blood Loss 200 Findings Consistent with Post-Op Diagnosis Specimens Wedge resection x2 left lower lobe Left lower lobe Multiple lymph nodes Drains 24 [place] chest tube Anesthesia Type General Complications none Disposition Accompanied Patient To Recovery: Yes Disposition: Recovery Room Indications This 59-year-old smoker had a non-hypermetabolic mass of her left lower lobe but it was growing. We elected to proceed with a wedge resection possible lobectomy. Description of Procedure On 08/03/2019 patient brought the operating room and underwent an uncomplicated wedge resection of the left lower lobe. We could feel the nodule and this was assessed and seemed to be a probable adenocarcinoma. We proceeded with an uncomplicated left lower lobectomy and did a full mediastinal lymphadenectomy. She tolerated it well. Procedure: Patient was brought to the operating room and laid in the supine position. General anesthesia was induced endotracheal intubation was performed with a single-lumen tube. After appropriate timeout had been called and prophylactic antibiotics given, the [employer] navigational bronchoscopy system was utilized and a navigational bronchoscopy was performed after we registered the airways. I was able to get out to the mass quite easily and radial ultrasound probe showed we were in correct position. 1 cc of indocyanine green dye was used and injected. This was done under fluoroscopic guidance. Patient's single-lumen tube which was switched out to a double-lumen tube. After appropriate lines for monitoring IV and Kumar catheter replaced patient was turned into the right lateral decubitus position. The left lateral chest was prepped and draped in usual sterile fashion. Another timeout was called. One lung ventilation ensued. 266 mg of Exparel rel and 20 cc of solution was mixed with 30 cc of 0.5% mepivacaine and 2 and 50 cc of normal saline. This was used to inject each of the 5 port sites. After entering the chest we then performed an intrathoracic intercostal block from the second to the 12th rib. A 5 mm port was placed just a bit anterior to the midaxillary line in the eighth interspace and can be seen there were no adhesions. This was switched over to a 12 mm camera port. 8 mm ports were then placed medially and laterally to this port. A 5 mm port was placed more posterior. We then placed a 12 mm assistance port anteriorly between the anterior port and camera port just above the diaphragm. Upon coming down we then used a firefly technology and we could see the area we had injected. We grasped this and performed a wedge resection and remove the wedge resection with a Endobag. However it appeared that the mass it slipped away from us while stapling. We then grasped the area will we could see some indocyanine green dye again and took another larger wedge. Again we use the Endobag to remove this. I could palpate the mass. This was sent to the lab. While waiting for the frozen section infrapulmonary ligament was taken down to level 9 level 8 nodes biopsy. I cleaned off the inferior pulmonary vein quite nicely as it exited the pleural cavity into the pericardium. We then continued our dissection posteriorly came down and biopsied the level 10 and level 7 lymph node. We identified the pulmonary artery and the bronchus quite nicely. Frozen section came back as an adenocarcinoma. We continued our dissection upward biopsied level 5 and 6 nodes. The lung was then retracted posteriorly and I continued my pleural dissection from the inferior pulmonary vein up. We had fairly well defined fissures. I was able to divide the entire posterior fissure without using a stapler. We identified the artery quite nicely. Then fired an Endo ANGELITA stapler across the artery x1 just below the takeoff of the lingula and included the branch to the superior segment. This freed up things nicely. I then fired Endo ANGELITA stapler anteriorly to complete the fissure. This identified the vein and the bronchus quite nicely. Endo ANGELITA stapler was then used to divide the bronchus just below the takeoff of the lingula. Although was left with the vein and we fired Endo ANGELITA stapler across this. We check for an air leak really did not see one. The large Endobag was used to remove the lobe from the assistance port which had to be opened a bit. 24 [place] chest tube was placed to the anterior port directed towards the apex and sutured in place with heavy silk suture. The largest camera port and assist ant port were closed with 0 Vicryl for the deeper layers. 4 Monocryl was used to close the skin incisions in a subcuticular fashion. Patient was extubated in the room. She did very well with a negligible blood loss and air leak. She was transported to the postanesthesia care unit in stable condition. I attest to the content of the Intraoperative Record and any orders documented therein. Any exceptions are noted below.
[2019-08-03] MEDS ORDERED: METOCLOPRAMIDE HCL INJ 5 MG/ML 2 ML VIAL IV ONE (14:15)
[2019-08-03] MEDS ORDERED: HYDROmorphone INJ 1 MG/ML SYRINGE ONE (14:33)
[2019-08-03] MEDS: HYDROmorphone INJ 1 MG/ML SYRINGE IV PRN ×4 (14:36→14:51)
--- NOTE | 2019-08-03 14:53 | XRay Report ---
XR chest 1V portable HISTORY: Left lower lobe resection. Postop. COMPARISON: Chest CT 06/27/2019. FINDINGS: Tiny left apical pneumothorax with a maximal pleural gap of 5 mm. The left chest tube termi nates in the left lung apex. A few bibasilar linear densities favor subsegmental atelectasis. The hea rt is normal in size. No pleural effusions. Left chest wall subcutaneous emphysema consistent with po stoperative change. IMPRESSION: Tiny left apical pneumothorax. The left chest tube terminates in the left lung apex. ACT 112: Negative or not required by law. Electronically signed by: Carlyle Mancuso M.D. 08/03/2019 2:51 PM
--- NOTE | 2019-08-03 15:07 | Anesthesiology Progress Note ---
Date of Service August 03, 2019 Anesthesia Post Procedure Vital Signs Vital Signs: Temp Pulse Pulse Resp BP Pulse Ox 08/03/19 14:55 94 H 16 119/78 94 08/03/19 14:45 95 H 16 128/72 94 08/03/19 14:35 99 H 16 108/71 97 08/03/19 14:25 80 16 118/78 94 08/03/19 14:18 36.0 C L 88 16 126/82 95 08/03/19 08:06 36.7 C 78 20 123/70 95 Pain Intensity Left Chest: Pain Intensity: 5 Transfer of Care Handoff Completed per policy Notes Mental Status: alert / awake / arousable Patient Amnestic to Procedure: Yes Nausea / Vomiting: adequately controlled Pain: adequately controlled Airway Patency, RR, SpO2: stable & adequate BP & HR: stable & adequate Hydration State: stable & adequate Anesthetic Complications: no major complications apparent
[2019-08-03] MEDS ORDERED: NITROGLYCERIN SL 0.4 MG/TAB TAB SL PRN (15:52)
[2019-08-03] MEDS ORDERED: LORazepam 0.5 MG TAB PO PRN (15:52)
[2019-08-03] MEDS ORDERED: ALBUTEROL HFA 8 GM INHALER INH PRN (15:56)
[2019-08-03] MEDS: SODIUM CHLORIDE 0.9% 1000ML 1,000 ML IV SCH (16:56)
[2019-08-03] MEDS: ACETAMINOPHEN 1,000 MG/100 ML VIAL IV SCH (17:08)
[2019-08-03] MEDS: INSULIN ASPART 100 UNITS/ML 3 ML PEN SC SCH ×2 (18:26→21:31)
[2019-08-03] MEDS: OXYCODONE HCL IR 5 MG TAB (IMMEDIATE RELEASE) PO PRN (21:08)
[2019-08-03] MEDS: AMITRIPTYLINE HCL 25 MG TAB PO SCH (21:08)
[2019-08-03] MEDS: clonazePAM 0.5 MG TAB PO SCH (21:08)
[2019-08-03] MEDS: SERTRALINE HCL 100 MG TABLET PO SCH (21:08)
[2019-08-03] MEDS: DIVALPROEX EXTENDED RELEASE 500 MG TAB PO SCH (21:08)
[2019-08-03] MEDS: DOCUSATE SODIUM 100 MG CAP PO SCH (21:08)
[2019-08-03] MEDS: METOCLOPRAMIDE HCL INJ 5 MG/ML 2 ML VIAL IV SCH (21:27)
[2019-08-03] MEDS: MoRPHine SULFATE 2 MG/ML CARP IV PRN (23:47)
[2019-08-04] MEDS: MoRPHine SULFATE 2 MG/ML CARP IV PRN ×9 (00:44→23:37)
[2019-08-04] MEDS: ACETAMINOPHEN 1,000 MG/100 ML VIAL IV SCH ×3 (01:52→17:44)
[2019-08-04] MEDS: SODIUM CHLORIDE 0.9% 1000ML 1,000 ML IV SCH ×2 (05:19→18:56)
[2019-08-04] MEDS: METOCLOPRAMIDE HCL INJ 5 MG/ML 2 ML VIAL IV SCH (05:19)
[2019-08-04] MEDS: LEVOTHYROXINE SODIUM 200 MCG TABLET PO SCH (05:19)
[2019-08-04 06:11] LABS: Eosinophils # (auto) 0.02 K/uL (0-0.5); Eosinophils % (auto) 0.3 %; Hemoglobin 11.8 g/dL (12.0-16.0); Immature Granulocytes # (auto) 0.02 K/uL (0.00-0.02); Immature Granulocytes % (auto) 0.3 %; Lymphocytes # (auto) 1.64 K/uL (1.2-3.4); Lymphocytes % (auto) 20.5 %; Mean Corpuscular Hemoglobin 29.7 pg (25-34); Mean Corpuscular Hgb Conc 33.7 g/dL (32-36); Mean Corpuscular Volume 88.2 fL (80-100); Mean Platelet Volume 9.9 fL (7.4-10.4); Monocytes # (auto) 0.93 K/uL (0.11-0.59); Monocytes % (auto) 11.6 %; Neutrophils # (auto) 5.38 K/uL (1.4-6.5); Neutrophils % (auto) 67.3 %; Platelet Count 125 K/uL (130-400); RDW Coefficient of Variation 13.8 % (11.5-14.5); RDW Standard Deviation 44.6 fL (36.4-46.3); Red Blood Count 3.97 M/uL (4.2-5.4); White Blood Count 7.99 K/uL (4.8-10.8)
[2019-08-04] MEDS: OXYCODONE HCL IR 5 MG TAB (IMMEDIATE RELEASE) PO PRN ×2 (06:23→16:58)
[2019-08-04 06:24] LABS: BUN Creatinine Ratio 11.6 (10-20); Calcium 8.6 mg/dl (8.5-10.1); Creatinine Clr Calc Pharmacy 90.1 ml/min; Est GFR (African American) 89.4; Est GFR (Non-African American) 77.2; Potassium 3.9 mmol/L (3.5-5.1)
--- NOTE | 2019-08-04 07:13 | XRay Report ---
XR chest 1V portable HISTORY: Postop. Left lower lobectomy. COMPARISON: Chest 08/03/2019. FINDINGS: A tiny left apical pneumothorax persists. The left chest tube terminates in the left lung a pex. The heart remains mildly enlarged. Suspect a trace left pleural effusion. Bibasilar densities pe rsist. There is mild interstitial thickening which could represent congestive change. IMPRESSION: 1. A tiny left apical pneumothorax persists. The left chest tube terminates in the left lung apex. 2. Trace left pleural effusion and bibasilar densities persist. 3. Suspect mild congestive change. ACT 112: Negative or not required by law. Electronically signed by: Carlyle Mancuso M.D. 08/04/2019 7:11 AM
[2019-08-04] MEDS: INSULIN ASPART 100 UNITS/ML 3 ML PEN SC SCH ×4 (09:05→21:10)
[2019-08-04] MEDS: ENOXAPARIN INJ 40 MG/0.4 ML SYR SQ SCH (09:06)
[2019-08-04] MEDS: ATORVASTATIN 20 MG TAB PO SCH (09:07)
[2019-08-04] MEDS: DOCUSATE SODIUM 100 MG CAP PO SCH ×2 (09:07→20:22)
[2019-08-04] MEDS: ISOSORBIDE MONO EXTENDED REL 30 MG TABCR PO SCH (09:07)
[2019-08-04] MEDS: dilTIAZem ER 120 MG CAPCR PO SCH (09:07)
[2019-08-04] MEDS: SERTRALINE HCL 100 MG TABLET PO SCH ×2 (09:08→20:22)
--- NOTE | 2019-08-04 11:20 | Progress Note ---
DATE: 08/04/2019 The patient looks very good today. I have few concerns. One is the fact that she is having significant amount of pain. She is on multiple medications at home including amitriptyline, clonazepam, lorazepam and sertraline. She is requiring narcotics. She has been ambulating in the hallway. She is tolerating regular diet. She has no air leak. She drained a little over 200 of serous fluid. Her x-ray looks quite good today. ASSESSMENT AND PLAN: Postop day number 1 status post robot-assisted thoracoscopic left lower lobectomy with mediastinal lymphadenectomy for an adenocarcinoma of the lung. She has done quite well and I suspect we will probably get her home tomorrow. I am a bit concerned about her pain. I am hopeful it is simply from the chest tube. Her pulse rate is 113. I am a bit hesitant to add any more medications.
--- NOTE | 2019-08-04 13:38 | Anesthesiology Progress Note ---
Date of Service August 04, 2019 Anesthesia Post Procedure Vital Signs Vital Signs: Temp Pulse Pulse Pulse Resp BP BP 08/04/19 11:15 36.8 C 108 H 19 120/79 08/04/19 08:00 36.9 C 113 H 20 121/68 08/04/19 05:35 08/04/19 05:25 08/04/19 03:40 36.6 C 113 H 16 111/74 08/04/19 02:14 08/04/19 01:50 37 C 117 H 24 121/77 08/03/19 23:45 36.8 C 120 H 18 114/63 08/03/19 21:45 36.7 C 121 H 16 118/76 08/03/19 19:45 36.7 C 114 H 16 118/72 08/03/19 18:45 36.4 C L 114 H 16 116/73 08/03/19 17:45 36.7 C 110 H 18 118/75 08/03/19 16:50 36.4 C L 108 H 16 119/78 08/03/19 16:15 36.4 C L 106 H 18 108/73 08/03/19 15:45 36.6 C 102 H 16 123/81 08/03/19 15:30 99 H 16 107/66 08/03/19 15:15 95 H 16 127/71 08/03/19 15:05 36.5 C 95 H 16 117/76 08/03/19 14:55 94 H 16 119/78 08/03/19 14:45 95 H 16 128/72 08/03/19 14:35 99 H 16 108/71 08/03/19 14:25 80 16 118/78 08/03/19 14:18 36.0 C L 88 16 126/82 Pulse Ox 08/04/19 11:15 93 08/04/19 08:00 94 08/04/19 05:35 90 08/04/19 05:25 88 L 08/04/19 03:40 92 08/04/19 02:14 90 08/04/19 01:50 88 L 08/03/19 23:45 93 08/03/19 21:45 90 08/03/19 19:45 94 08/03/19 18:45 93 08/03/19 17:45 93 08/03/19 16:50 90 08/03/19 16:15 91 08/03/19 15:45 90 08/03/19 15:30 93 08/03/19 15:15 92 08/03/19 15:05 93 08/03/19 14:55 94 08/03/19 14:45 94 08/03/19 14:35 97 08/03/19 14:25 94 08/03/19 14:18 95 Notes Mental Status: alert / awake / arousable Patient Amnestic to Procedure: Yes Nausea / Vomiting: adequately controlled Pain: adequately controlled Airway Patency, RR, SpO2: stable & adequate BP & HR: stable & adequate Hydration State: stable & adequate Anesthetic Complications: no major complications apparent and Pt Satisfied with anesthetic care
[2019-08-04] MEDS: DIVALPROEX EXTENDED RELEASE 500 MG TAB PO SCH (20:22)
[2019-08-04] MEDS: AMITRIPTYLINE HCL 25 MG TAB PO SCH (20:22)
[2019-08-04] MEDS: clonazePAM 0.5 MG TAB PO SCH (20:23)
[2019-08-05] MEDS: ACETAMINOPHEN 1,000 MG/100 ML VIAL IV SCH ×3 (01:42→17:49)
[2019-08-05] MEDS: LEVOTHYROXINE SODIUM 200 MCG TABLET PO SCH (05:57)
[2019-08-05] MEDS: OXYCODONE HCL IR 5 MG TAB (IMMEDIATE RELEASE) PO PRN ×2 (07:34→13:33)
--- NOTE | 2019-08-05 07:40 | XRay Report ---
XR chest 1V portable CLINICAL HISTORY: post-op LEFT LOWER LOBECTOMY COMPARISON STUDY: 08/04/2019 FINDINGS: Postsurgical changes are present on the left. There is a left-sided chest tube. There is a trace left apical pneumothorax with pleural separation of 3 mm. There is mild diffuse elevation of in terstitium, likely secondary to mild congestive failure/fluid overload. Slightly more prominent left basilar markings are likely atelectatic[ IMPRESSION: 1. Trace left apical pneumothorax 2. Suspected mild pulmonary vascular congestion/fluid overload. 3. No change in position of the left-sided chest tube. ACT 112: Negative or not required by law. Electronically signed by: Mark Rashid M.D. 08/05/2019 7:39 AM
[2019-08-05] MEDS: ENOXAPARIN INJ 40 MG/0.4 ML SYR SQ SCH (09:32)
[2019-08-05] MEDS: DOCUSATE SODIUM 100 MG CAP PO SCH ×2 (09:34→20:59)
[2019-08-05] MEDS: ISOSORBIDE MONO EXTENDED REL 30 MG TABCR PO SCH (09:34)
[2019-08-05] MEDS: SERTRALINE HCL 100 MG TABLET PO SCH ×2 (09:35→20:59)
[2019-08-05] MEDS: dilTIAZem ER 120 MG CAPCR PO SCH (09:35)
[2019-08-05] MEDS: ATORVASTATIN 20 MG TAB PO SCH (09:35)
--- NOTE | 2019-08-05 10:02 | XRay Report ---
XR chest 1V portable CLINICAL HISTORY: chest tube removal COMPARISON STUDY: 08/05/2019 FINDINGS: The cardiac and mediastinal contours remain stable. There has been interval removal of the left-sided chest tube. There is a stable trace left apical pneumothorax. There is mild elevation of t he pulmonary interstitium suggesting an element of mild pulmonary vascular congestion. There are pers istent left basilar airspace opacities likely atelectatic[ IMPRESSION: 1. Interval removal of the left sided chest tube 2. Stable trace left apical pneumothorax ACT 112: Negative or not required by law. Electronically signed by: Mark Rashid M.D. 08/05/2019 10:00 AM
[2019-08-05] MEDS ORDERED: FUROSEMIDE 20 MG in SYRINGE 0 ML IV ONE (10:03)
[2019-08-05] MEDS: INSULIN ASPART 100 UNITS/ML 3 ML PEN SC SCH ×4 (10:05→20:56)
--- NOTE | 2019-08-05 10:25 | Progress Note ---
DATE: 08/05/2019 The patient is complaining of pain; however, she looks better to me. She is on 4 liters of 96% saturation. Unfortunately, she is wheezing quite a bit. Her x-ray looked good, so I removed her chest tube and her post chest tube removal chest x-ray looks fine except she has some atelectasis at the left base. Her incisions are clean. She has no peripheral edema. She has been ambulating in the hallway and eating well. I discussed her wheezing with Dr. 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 We are going to start her on some Solu-Medrol and antibiotics that she does have a cough productive of some dark sputum, although I think some of this may be old blood. At any rate, we will check an x-ray in the morning and hopefully will be able to wean her off her oxygen. She is much improved after chest tube was removed.
[2019-08-05] MEDS: AMOXICILLIN/CLAVULANATE 875 MG TAB PO SCH ×2 (11:55→17:49)
[2019-08-05] MEDS: methylPREDNISolone 40 MG in SYRINGE 0 ML IV SCH ×2 (11:55→20:59)
[2019-08-05] MEDS: SODIUM CHLORIDE 0.9% 1000ML 1,000 ML IV SCH (16:53)
[2019-08-05] MEDS: clonazePAM 0.5 MG TAB PO SCH (20:59)
[2019-08-05] MEDS: AMITRIPTYLINE HCL 25 MG TAB PO SCH (20:59)
[2019-08-05] MEDS: DIVALPROEX EXTENDED RELEASE 500 MG TAB PO SCH (20:59)
[2019-08-06] MEDS: ACETAMINOPHEN 1,000 MG/100 ML VIAL IV SCH ×2 (01:59→10:54)
[2019-08-06] MEDS: LEVOTHYROXINE SODIUM 200 MCG TABLET PO SCH (06:19)
[2019-08-06] MEDS: OXYCODONE HCL IR 5 MG TAB (IMMEDIATE RELEASE) PO PRN (06:19)
--- NOTE | 2019-08-06 07:32 | XRay Report ---
XR chest 1V portable CLINICAL HISTORY: 59 years-old Female presenting with lobectomy. TECHNIQUE: Portable upright AP view of the chest was obtained. COMPARISON: 08/05/2019. FINDINGS: Cardiac silhouette borderline enlarged. Obscuration of the left hemidiaphragm with persistent left ba silar dense opacity and suspected left pleural effusion. Overall mild prominence of the interstitial lung markings bilaterally. No pneumothorax appreciated. Osseous structures normal. Upper abdomen norm al. IMPRESSION: 1. Persistent left pleural effusion and extensive left basilar consolidation/atelectasis. 2. No demonstrable pneumothorax. ACT 112: Negative or not required by law. Electronically signed by: Paul Kingsley M.D. 08/06/2019 7:30 AM
--- NOTE | 2019-08-06 07:40 | Anesthesiology Progress Note ---
Date of Service August 06, 2019 Anesthesia Post Procedure Vital Signs Vital Signs: Temp Pulse Pulse Pulse Resp BP Pulse Ox 08/06/19 06:30 93 08/05/19 23:39 90 08/05/19 23:36 37.2 C 103 H 18 136/78 87 L 08/05/19 15:27 37.1 C 101 H 18 116/72 93 08/05/19 07:51 101 H 08/05/19 07:43 37.1 C 110 H 20 141/80 H 96 Pain Intensity Left Chest: Pain Intensity: 8 Abdomen: Pain Intensity: 5 Notes Mental Status: alert / awake / arousable and participated in evaluation Patient Amnestic to Procedure: Yes Nausea / Vomiting: adequately controlled Pain: adequately controlled Airway Patency, RR, SpO2: stable & adequate BP & HR: stable & adequate Hydration State: stable & adequate Anesthetic Complications: no major complications apparent and Pt Satisfied with anesthetic care
[2019-08-06] MEDS: dilTIAZem ER 120 MG CAPCR PO SCH (09:14)
[2019-08-06] MEDS: ATORVASTATIN 20 MG TAB PO SCH (09:14)
[2019-08-06] MEDS: ISOSORBIDE MONO EXTENDED REL 30 MG TABCR PO SCH (09:14)
[2019-08-06] MEDS: DOCUSATE SODIUM 100 MG CAP PO SCH (09:14)
[2019-08-06] MEDS: AMOXICILLIN/CLAVULANATE 875 MG TAB PO SCH (09:15)
[2019-08-06] MEDS: ENOXAPARIN INJ 40 MG/0.4 ML SYR SQ SCH (09:15)
[2019-08-06] MEDS: SERTRALINE HCL 100 MG TABLET PO SCH (09:15)
[2019-08-06] MEDS: methylPREDNISolone 40 MG in SYRINGE 0 ML IV SCH (09:21)
[2019-08-06] MEDS: INSULIN ASPART 100 UNITS/ML 3 ML PEN SC SCH ×2 (09:24→13:11)
--- NOTE | 2019-08-06 10:45 | Discharge Summary ---
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 This was followed and was seen to grow prompting a more aggressive work-up. A PET scan showed no hypermetabolic activity however, the fact it had grown was worrisome. This reason on 08/03/2019, I brought the patient the operating room and did an electromagnetic navigational bronchoscopy and marked this mass with indocyanine green dye. I then turned the patient and did a robotic wedge resection of this mass. Frozen section showed that it was indeed a non-small cell lung carcinoma, possibly an adenocarcinoma. I then performed an uncomplicated robot-assisted thoracoscopic left lower lobectomy with a mediastinal lymphadenectomy. She tolerated it well. She developed some wheezing on postop day 2. I removed her chest tube and she was up ambulating but started her on steroids for an exacerbation of her underlying chronic restrictive pulmonary disease. She also coughed up some thicker bloody sputum which I feel is probably postoperative and should be self-limited however, she is a bit more hypoxic so I started her on antibiotics. The following day on postoperative day 3 she looks much better. I thought her x-ray look good. She has postop changes in the left base but otherwise her lung was expanded nicely. She had no wheezing at all on postop day 3. I discharged her home. She will require oxygen. Our 2 steps showed that she needs 4 L of O2 with exercise and 2 L at rest. I will see her back in the office in 4 days for final pathology results. I am quite pleased with her. We discharge her home with her regular medications and in addition added tramadol for pain, Augmentin for 7 days, and a Medrol Dosepak.
== END 2019-08-06 15:45 | disposition home or self-care (01) | DRG 164 ==
LOC: ASU 07:20 → 3N 14:04